=== PATIENT | female | born 1940 | race Caucasian/White ===

== ENCOUNTER 2019-09-17 10:46 | Observation (INO) | payer MEDICARE, BC ==
--- NOTE | 2019-09-17 11:15 | ED ---
General Adult HPI - General Chief complaint: Shortness of Breath Stated complaint: dizzy,cough, short of breath Time Seen by Provider: 09/17/19 11:11 Source: patient, RN notes reviewed, old records reviewed Mode of arrival: wheelchair Limitations: no limitations - History of Present Illness Initial comments: 79-year-old female presenting for evaluation of cough and dyspnea. Patient has COPD. She's had 2 days of increasing cough with sputum production. No fever. No central radiating chest pain. No lower extremity pain or swelling. Denies URI symptoms. No known contacts with coronal virus. Patient currently not on home oxygen. She was urged presented emergency department by her daughter. No abdominal pain nausea or vomiting. - Related Data Home Medications Medication Instructions Recorded Confirmed Atorvastatin [Lipitor] 20 mg PO DAILY 01/11/15 01/11/15 Carvedilol [Coreg] 6.25 mg PO BID 01/11/15 01/11/15 Furosemide [Lasix] 40 mg PO BID 01/11/15 01/11/15 Glimepiride [Amaryl] 2 mg PO AC-[id number] 01/11/15 01/11/15 Levothyroxine Sodium [Synthroid] 150 mcg PO DAILY 01/11/15 01/11/15 Lisinopril [Zestril] 10 mg PO DAILY 01/11/15 01/11/15 Tiotropium 18 Mcg/Puff [Spiriva] 1 cap INHALATION DAILY 01/11/15 01/11/15 Warfarin [Coumadin] 5 mg PO DIRECTED 01/11/15 01/11/15 Zafirlukast 20 mg PO BID 01/11/15 01/11/15 metFORMIN HCL 1,000 mg PO BID 01/11/15 01/11/15 Previous Rx's Medication Instructions Recorded HYDROcodone/APAP 5-325MG [Parks 1 each PO Q6HR PRN #20 tab 01/11/15 5-325] Allergies Allergy/AdvReac Type Severity Reaction Status Date / Time No Known Allergies Allergy Verified 09/17/19 10:53 Review of Systems ROS Statement: Those systems with pertinent positive or pertinent negative responses have been documented in the HPI. ROS Other: All systems not noted in ROS Statement are negative. Past Medical History Past Medical History: Heart Failure, COPD, Diabetes Mellitus, Hyperlipidemia, Hypertension, Thyroid Disorder History of Any Multi-Drug Resistant Organisms: None Reported Past Surgical History: Appendectomy, Cholecystectomy, Coronary Bypass/CABG, Joint Replacement, Orthopedic Surgery Past Psychological History: No Psychological Hx Reported Smoking Status: Never smoker Past Alcohol Use History: None Reported Past Drug Use History: None Reported General Exam Limitations: no limitations General appearance: alert, in no apparent distress Head exam: Present: atraumatic, normocephalic Eye exam: Present: normal appearance, PERRL ENT exam: Present: normal exam Neck exam: Present: normal inspection. Absent: tenderness, meningismus Respiratory exam: Present: respiratory distress, wheezes, decreased breath sounds. Absent: accessory muscle use Cardiovascular Exam: Present: regular rate, irregular rhythm GI/Abdominal exam: Present: soft. Absent: distended, tenderness, guarding, rebo und Extremities exam: Present: normal inspection, normal capillary refill. Absent: pedal edema, calf tenderness Back exam: Present: normal inspection, full ROM Neurological exam: Present: alert, oriented X3, CN II-XII intact. Absent: motor sensory deficit Psychiatric exam: Present: normal affect, normal mood Skin exam: Present: warm, dry, intact. Absent: cyanosis, diaphoretic Course Vital Signs 09/17/19 10:53 Temperature 97.9 F Pulse Rate 64 Respiratory 18 Rate Blood Pressure 137/73 O2 Sat by Pulse 96 Oximetry EKG Findings - EKG Comments: EKG Findings:: EKG: Atrial fibrillation, left axis, rate of 66, QRS duration 84, QTC 452, no ST segment elevation Medical Decision Making - Medical Decision Making 79-year-old female presenting with cough dyspnea. History of COPD. Exam rev ealing bilateral wheezing. Chest x-ray showing COPD, cardiomegaly, trace pleural effusions no lobar pneumonia. Patient has normal CBC, normal CMP, lactic acid of 3.0, normal BNP 850. After albuterol, Atrovent steroids, she has some improvement but remains dyspneic. She will be placed in observation for treatment of COPD exacerbation. Case is discussed with Dr. Schuster, will accept admission. Muniz virus test pending - Lab Data Result diagrams: 09/17/19 11:05 09/17/19 11:05 Lab Results 09/17/19 09/17/19 09/17/19 Range/Units 11:05 11:05 11:05 WBC 5.1 (3.8-10.6) k/uL RBC 4.72 (3.80-5.40) m/uL Hgb 12.5 (11.4-16.0) gm/dL Hct 40.5 (34.0-46.0) % MCV 85.7 (80.0-100.0) fL MCH 26.4 (25.0-35.0) pg MCHC 30.8 L (31.0-37.0) g/dL RDW 15.4 (11.5-15.5) % Plt Count 163 (150-450) k/uL Neutrophils % 64 % Lymphocytes % 16 % Monocytes % 8 % Eosinophils % 9 % Basophils % 1 % Neutrophils # 3.3 (1.3-7.7) k/uL Lymphocytes # 0.8 L (1.0-4.8) k/uL Monocytes # 0.4 (0-1.0) k/uL Eosinophils # 0.4 (0-0.7) k/uL Basophils # 0.0 (0-0.2) k/uL Hypochromasia Slight Sodium 139 (137-145) mmol/L Potassium 3.9 (3.5-5.1) mmol/L Chloride 102 (98-107) mmol/L Carbon Dioxide 25 (22-30) mmol/L Anion Gap 12 mmol/L BUN 17 (7-17) mg/dL Creatinine 0.77 (0.52-1.04) mg/dL Est GFR (CKD-EPI)AfAm 84 (>60 ml/min/1.73 sqM) Est GFR (CKD-EPI)NonAf 73 (>60 ml/min/1.73 sqM) Glucose 147 H (74-99) mg/dL Plasma Lactic Acid Jayson 3.0 H* (0.7-2.0) mmol/L Calcium 9.9 (8.4-10.2) mg/dL Magnesium 1.7 (1.6-2.3) mg/dL Total Bilirubin 0.9 (0.2-1.3) mg/dL AST 20 (14-36) U/L ALT 12 (4-34) U/L Alkaline Phosphatase 81 (38-126) U/L NT-Pro-B Natriuret Pep pg/mL Total Protein 7.0 (6.3-8.2) g/dL Albumin 4.4 (3.5-5.0) g/dL 09/17/19 Range/Units 11:05 WBC (3.8-10.6) k/uL RBC (3.80-5.40) m/uL Hgb (11.4-16.0) gm/dL Hct (34.0-46.0) % MCV (80.0-100.0) fL MCH (25.0-35.0) pg MCHC (31.0-37.0) g/dL RDW (11.5-15.5) % Plt Count (150-450) k/uL Neutrophils % % Lymphocytes % % Monocytes % % Eosinophils % % Basophils % % Neutrophils # (1.3-7.7) k/uL Lymphocytes # (1.0-4.8) k/uL Monocytes # (0-1.0) k/uL Eosinophils # (0-0.7) k/uL Basophils # (0-0.2) k/uL Hypochromasia Sodium (137-145) mmol/L Potassium (3.5-5.1) mmol/L Chloride (98-107) mmol/L Carbon Dioxide (22-30) mmol/L Anion Gap mmol/L BUN (7-17) mg/dL Creatinine (0.52-1.04) mg/dL Est GFR (CKD-EPI)AfAm (>60 ml/min/1.73 sqM) Est GFR (CKD-EPI)NonAf (>60 ml/min/1.73 sqM) Glucose (74-99) mg/dL Plasma Lactic Acid Jayson (0.7-2.0) mmol/L Calcium (8.4-10.2) mg/dL Magnesium (1.6-2.3) mg/dL Total Bilirubin (0.2-1.3) mg/dL AST (14-36) U/L ALT (4-34) U/L Alkaline Phosphatase (38-126) U/L NT-Pro-B Natriuret Pep 850 pg/mL Total Protein (6.3-8.2) g/dL Albumin (3.5-5.0) g/dL Disposition Clinical Impression: Acute exacerbation of chronic obstructive pulmonary disease Disposition: ADMITTED IP TO THIS HOSP Condition: Stable Is patient prescribed a controlled substance at d/c from ED?: No Referrals: Que Ling MD [Primary Care Provider] - 1-2 days Decision to Admit Reason: Admit from EC Decision Date: 09/17/19 Decision Time: 13:40
[2019-09-17] MEDS ORDERED: IPRATROPIUM 0.5 MG/2.5 ML NEBU INHALATION STA (11:32)
[2019-09-17] MEDS ORDERED: methylPREDNISolone SOD SUCCI 125 MG/2 ML VIAL IV STA (11:32)
[2019-09-17] MEDS ORDERED: ALBUTEROL NEBULIZED 2.5 MG/3 ML INHALATION STA (11:32)
[2019-09-17] MEDS ORDERED: ALBUTEROL HFA INHALER INHALATION STA (11:43)
[2019-09-17 11:46] LABS: Basophils % (A) 1 %; Eosinophils # (A) 0.4 k/uL (0-0.7); Eosinophils % (A) 9 %; HCT 40.5 % (34.0-46.0); HGB 12.5 gm/dL (11.4-16.0); Hypochromasia Slight; Lymphocytes # (A) 0.8 k/uL (1.0-4.8); Lymphocytes % (A) 16 %; MCH 26.4 pg (25.0-35.0); MCHC 30.8 g/dL (31.0-37.0); MCV 85.7 fL (80.0-100.0); Mean Platelet Volume 8.2; Monocytes # (A) 0.4 k/uL (0-1.0); Monocytes % (A) 8 %; Neutrophils # (A) 3.3 k/uL (1.3-7.7); Neutrophils % (A) 64 %; Platelet Count 163 k/uL (150-450); RBC 4.72 m/uL (3.80-5.40); RDW 15.4 % (11.5-15.5); WBC 5.1 k/uL (3.8-10.6)
[2019-09-17 11:58] LABS: Albumin 4.4 g/dL (3.5-5.0); Calcium 9.9 mg/dL (8.4-10.2); Magnesium 1.7 mg/dL (1.6-2.3); Potassium 3.9 mmol/L (3.5-5.1); Total Bilirubin 0.9 mg/dL (0.2-1.3)
--- NOTE | 2019-09-17 12:01 | XR ---
EXAMINATION TYPE: XR chest 2V DATE OF EXAM: 09/17/2019 HISTORY: difficulty breathing. REFERENCE: Previous study dated 01/11/2015. FINDINGS: There has been a midline sternotomy. The lungs are overinflated. The heart is enlarged. I do not see pneumonia or edema. There is blunting of both CP angles and I cannot exclude small effusions. IMPRESSION: 1. COPD. 2. CARDIOMEGALY.
[2019-09-17] MEDS ORDERED: SODIUM CHLORIDE 0.9% 500 ML 500 ML IV ONE (12:33)
[2019-09-17] MEDS ORDERED: ALBUTEROL HFA INHALER INHALATION PRN (13:36)
[2019-09-17] MEDS: ACETAMINOPHEN TAB 325 MG TAB PO PRN (15:32)
[2019-09-17] MEDS ORDERED: ALBUTEROL HFA INHALER INHALATION SCH (16:00)
[2019-09-17 17:04] LABS: Glucose,Whole Blood 225 mg/dL (75-99)
[2019-09-17] MEDS: FUROSEMIDE 40 MG TAB PO SCH (17:04)
[2019-09-17] MEDS: CARVEDILOL 6.25 MG TAB PO SCH (17:04)
[2019-09-17] MEDS: methylPREDNISolone SOD SUCCI 125 MG/2 ML VIAL IV SCH (17:04)
[2019-09-17] MEDS ORDERED: ALBUTEROL NEBULIZED 2.5 MG/3 ML INHALATION PRN (18:22)
[2019-09-17] MEDS ORDERED: NALOXONE 0.4 MG/ML 1 ML VIAL IV PRN (18:56)
[2019-09-17] MEDS ORDERED: HYDROcodone/APAP 5-325MG 1 EACH TAB PO PRN (18:56)
--- NOTE | 2019-09-17 18:56 | P.HPIM ---
History of Present Illness H&P Date: 09/17/19 Chief Complaint: COPD exacerbation 79-year-old female with PMH of COPD, hypertension, diabetes mellitus, hypothyroidism, CAD, atrial fibrillation presents the ED for shortness of breath. Patient states that she attended an outdoor picnic for her grandson's birthday on Wednesday. Upon coming home, patient noticed increased frequency of cough that she describes as wet, unable to produce sputum and shortness of breath. Patient states that she has been getting coughing fits that leads to dizziness. Patient also reports lightheadedness especially when she stands up. She denies any headaches, lower extremity edema, nausea or vomiting, fever or chills, chest pain, palpitations, changes in urination or bowel habits. No changes in appetite or weight. She denies any numbness/weakness/tingling of the extremities. When her symptoms did not improve, this prompted her to come to the ED. In the ED, her vital signs were stable on 2 L nasal cannula. CBC was relatively unremarkable. CMP showed glucose of 147. Lactic acid was 3. BNP was 850. Coronavirus testing was negative. Patient is admitted for COPD exacerbation with pulmonology on consult. Review of Systems Pertinent positives and negatives as discussed in HPI, a complete review of systems was performed and all other systems are negative. Past Medical History Past Medical History: Heart Failure, COPD, Diabetes Mellitus, Hyperlipidemia, Hypertension, Thyroid Disorder History of Any Multi-Drug Resistant Organisms: None Reported Past Surgical History: Appendectomy, Cholecystectomy, Coronary Bypass/CABG, Hysterectomy, Joint Replacement, Orthopedic Surgery Past Psychological History: No Psychological Hx Reported Smoking Status: Never smoker Past Alcohol Use History: None Reported Past Drug Use History: None Reported - Past Family History Mother Family Medical History: Myocardial Infarction ([place]) Medications and Allergies Home Medications Medication Instructions Recorded Confirmed Type Carvedilol [Coreg] 6.25 mg PO BID 01/11/15 09/17/19 History Furosemide [Lasix] 40 mg PO BID 01/11/15 09/17/19 History Zafirlukast 20 mg PO BID 01/11/15 09/17/19 History metFORMIN HCL 1,000 mg PO BID 01/11/15 09/17/19 History Albuterol Nebulized [Ventolin 2.5 mg INHALATION RT-Q8H PRN 09/17/19 09/17/19 History Nebulized] Apixaban [Eliquis] 2.5 mg PO BID 09/17/19 09/17/19 History Isosorbide Mononitrate ER [Imdur] 30 mg PO DAILY 09/17/19 09/17/19 History Levothyroxine Sodium [Synthroid] 137 mcg PO DAILY 09/17/19 09/17/19 History Lisinopril 20 mg PO BID 09/17/19 09/17/19 History amLODIPine [Norvasc] 5 mg PO DAILY 09/17/19 09/17/19 History glipiZIDE XL [Glucotrol Xl] 2.5 mg PO DAILY 09/17/19 09/17/19 History Allergies Allergy/AdvReac Type Severity Reaction Status Date / Time No Known Allergies Allergy Verified 09/17/19 10:53 Physical Exam Vitals: Vital Signs Temp Pulse Pulse Resp BP BP Pulse Ox 09/17/19 14:45 97.8 F 60 18 168/78 98 09/17/19 14:15 57 L 16 139/53 99 09/17/19 13:56 61 17 155/79 97 09/17/19 10:53 97.9 F 64 18 137/73 96 Intake and Output 09/17/19 09/17/19 09/17/19 06:59 14:59 22:59 Intake Total 296 Balance 296 Intake: Oral 296 Other: Weight 77.111 kg General: [non toxic], [no distress], [appears at stated age] Derm: [warm], [dry] Head: [atraumatic], [normocephalic], [symmetric] Eyes: [EOMI], [no lid lag], [anicteric sclera] Mouth: [no lip lesion], [mucus membranes moist] Cardiovascular: [S1S2 reg], [tachycardia], [positive DP pulse bilateral], Lungs: [Diffuse wheezing bilateral], [no rhonchi, no rales] , [no accessory muscle use] Abdominal: [soft], [ nontender to palpation], [no guarding], [no appreciable organomegaly] Ext: [no gross muscle atrophy], [no edema], [no contractures] Neuro: [ CN II-XI grossly intact], [no focal neuro deficits] Psych: [Alert], [oriented], [appropriate affect] Results CBC & Chem 7: 09/17/19 11:05 09/17/19 11:05 Labs: Abnormal Lab Results - Last 24 Hours (Table) 09/17/19 09/17/19 09/17/19 Range/Units 11:05 11:05 11:05 MCHC 30.8 L (31.0-37.0) g/dL Lymphocytes # 0.8 L (1.0-4.8) k/uL Glucose 147 H (74-99) mg/dL POC Glucose (mg/dL) (75-99) mg/dL Plasma Lactic Acid Jayson 3.0 H* (0.7-2.0) mmol/L 09/17/19 Range/Units 17:02 MCHC (31.0-37.0) g/dL Lymphocytes # (1.0-4.8) k/uL Glucose (74-99) mg/dL POC Glucose (mg/dL) 225 H (75-99) mg/dL Plasma Lactic Acid Jayson (0.7-2.0) mmol/L Thrombosis Risk Factor Assmnt - Choose All That Apply Any of the Below Risk Factors Present?: Yes Each Factor Represents 1 point: Abnormal pulmonary function (COPD), Obesity (BMI >25) Other Risk Factors: Yes Each Risk Factor Represents 3 Points: Age 75 years or older Other congenital or acquired thrombophilia - If yes, enter type in comment: No Thrombosis Risk Factor Assessment Total Risk Factor Score: 5 Thrombosis Risk Factor Assessment Level: High Risk Assessment and Plan Assessment: Acute COPD exacerbation Lactic acidosis Atrial fibrillation on anticoagulation Hypertension Diabetes mellitus with hyperglycemia Obesity Chest x-ray negative. BNP 850. Coronavirus testing negative. Plans: Albuterol nebs scheduled and as needed for shortness of breath and wheezing. Continue Solu-Medrol. 3 days of azithromycin. Continue tiotropium. Continue Singulair. O2 per NC to maintain O2 saturation greater than 92%. Telemetry monitoring. Lactic acid 3. Likely from dehydration. Plans: Normal sinus 75 mL per hour. Repeat until negative. Currently rate controlled. Plans: Continue Eliquis. Continue Coreg. BP 139/53. Plans: Continue amlodipine, Coreg, Lasix, Imdur and lisinopril. Monitor vitals, adjust medications as necessary. [id number] glucose 225. Plans: Insulin sliding scale. Regular Accu-Cheks. Hypoglycemic precautions. BMI 29.2. Plans: Would benefit from structured weight loss program. DVT prophylaxis: [[place]] Discussed with: [Patient] Anticipated discharge: [1-2 days] Anticipated discharge place: [Home] A total of [35] minutes was spent on the care of this complex patient more than 50% of the time was spent in counseling and care coordination. Patient names her daughter Donya decision maker if she can't make decisions for herself. Patient would like to be DO NOT RESUSCITATE but is agreeable for intubation if need be.
[2019-09-17] MEDS ORDERED: AZITHROMYCIN 500 MG TAB PO SCH (19:00)
[2019-09-17] MEDS: ALBUTEROL NEBULIZED 2.5 MG/3 ML INHALATION SCH ×2 (19:49→23:36)
[2019-09-17 20:26] LABS: Glucose,Whole Blood 273 mg/dL (75-99)
[2019-09-17] MEDS ORDERED: MONTELUKAST 10 MG TAB PO SCH (21:00)
[2019-09-17] MEDS: APIXABAN 2.5 MG TABLET PO SCH (21:41)
[2019-09-17] MEDS: LISINOPRIL 20 MG TAB PO SCH (21:41)
[2019-09-17] MEDS: INSULIN ASPART (NovoLOG) 100 UNIT/ML VIAL SQ SCH (21:42)
[2019-09-17] MEDS: guaiFENesin 600 MG TABLET.ER PO SCH (21:44)
[2019-09-17] MEDS: SODIUM CHLORIDE 0.9% 1,000 ML IV SCH (22:59)
[2019-09-18] MEDS: methylPREDNISolone SOD SUCCI 125 MG/2 ML VIAL IV SCH ×3 (01:29→12:13)
[2019-09-18 03:24] LABS: Glucose,Whole Blood 186 mg/dL (75-99)
[2019-09-18] MEDS: ALBUTEROL NEBULIZED 2.5 MG/3 ML INHALATION SCH ×3 (03:40→11:43)
[2019-09-18] MEDS: ACETAMINOPHEN TAB 325 MG TAB PO PRN (06:01)
[2019-09-18] MEDS ORDERED: LEVOTHYROXINE 137 MCG TAB PO SCH (06:30)
[2019-09-18 06:38] LABS: Glucose,Whole Blood 208 mg/dL (75-99)
[2019-09-18 07:26] VITALS: BP 146/68; RESP 15; TEMP 98
[2019-09-18] MEDS: TIOTROPIUM 18 MCG/PUFF INHALER INHALATION SCH ×2 (07:55→11:43)
[2019-09-18] MEDS: guaiFENesin 600 MG TABLET.ER PO SCH (08:05)
[2019-09-18] MEDS: LISINOPRIL 20 MG TAB PO SCH (08:05)
[2019-09-18] MEDS: APIXABAN 2.5 MG TABLET PO SCH (08:05)
[2019-09-18] MEDS: FUROSEMIDE 40 MG TAB PO SCH (08:05)
[2019-09-18] MEDS: CARVEDILOL 6.25 MG TAB PO SCH (08:06)
[2019-09-18] MEDS: INSULIN ASPART (NovoLOG) 100 UNIT/ML VIAL SQ SCH ×2 (08:10→12:14)
[2019-09-18] MEDS ORDERED: amLODIPine 5 MG TAB PO SCH (09:00)
[2019-09-18] MEDS ORDERED: ISOSORBIDE MONONITRATE ER 30 MG TAB.ER.24H PO SCH (09:00)
[2019-09-18 11:07] LABS: Glucose,Whole Blood 254 mg/dL (75-99)
[2019-09-18 11:54] VITALS: PULSE 72
[2019-09-18] MEDS: SODIUM CHLORIDE 0.9% 1,000 ML IV SCH (12:14)
--- NOTE | 2019-09-18 12:32 | P.CNPUL ---
History of Present Illness Consult date: 09/18/19 Requesting physician: Dano Schuster Reason for consult: dyspnea, cough Chief complaint: Cough and dyspnea History of present illness: 79-year-old white female patient of Dr. Ling, nonsmoker, with history of COPD, not on home oxygen, diabetes mellitus type 2, hypertension, hyperlipidemia, hypothyroidism, coronary artery disease with previous history of bypass grafting, atrial fibrillation on Eliquis, history of chronic congestive heart failure with unknown systolic function who presented to the emergency department on 09/17/2019 with complaints of 2 days worth of increasing shortness of breath, cough and sputum production. Apparently patient attended an outdoor picnic for her grandson's birthday on Wednesday after which she developed increased frequency of cough. Denied any fever or chills, denied any chest pain or hemoptysis, denied any contact with COVID 19. No nausea vomiting or diarrhea, no abdominal pain, no lightheadedness or dizziness. Patient states she is a lifetime nonsmoker. Chest x-ray showed COPD, midline sternotomy, and blunting of both CP angles consistent with small pleural effusions. EKG showed A. fib with a controlled rate. Coronavirus testing was negative, CBC showed white blood cell count of 5.1, hemoglobin of 12.5, lymphopenia with the lymphocy te count of 0.8, electrolytes and renal profile were unremarkable, plasma lactic acid was normal at 1.9, LFTs were within normal limits, proBNP was 850. Patient was treated with IV steroids, Mucinex, Singulair, nebulized bronchodilators, azithromycin, Spiriva. She is on home dose Lasix of 40 mg twice daily. She looks calm and comfortable during our evaluation, room air pulse ox is 93%, she's been afebrile. Breathing easier, lung sounds are clear. Responded well to inpatient treatment. Patient can be considered for discharge home today with outpatient follow-up in the pulmonary clinic Review of Systems All systems: negative Constitutional: Denies chills, Denies fever Eyes: denies blurred vision, denies pain Ears, nose, mouth and throat: Denies headache, Denies sore throat Cardiovascular: Denies chest pain, Denies shortness of breath Respiratory: Reports cough, Reports dyspnea Gastrointestinal: Denies abdominal pain, Denies diarrhea, Denies nausea, Denies vomiting Genitourinary: Denies dysuria, Denies hematuria Musculoskeletal: Denies myalgias Integumentary: Denies pruritus, Denies rash Neurological: Denies numbness, Denies weakness Psychiatric: Denies anxiety, Denies depression Endocrine: Denies fatigue, Denies weight change Past Medical History Past Medical History: Heart Failure, COPD, Diabetes Mellitus, Hyperlipidemia, Hypertension, Thyroid Disorder History of Any Multi-Drug Resistant Organisms: None Reported Past Surgical History: Appendectomy, Cholecystectomy, Coronary Bypass/CABG, Hysterectomy, Joint Replacement, Orthopedic Surgery Past Psychological History: No Psychological Hx Reported Smoking Status: Never smoker Past Alcohol Use History: None Reported Past Drug Use History: None Reported - Past Family History Mother Family Medical History: Myocardial Infarction ([place]) Medications and Allergies Home Medications Medication Instructions Recorded Confirmed Type Carvedilol [Coreg] 6.25 mg PO BID 01/11/15 09/17/19 History Furosemide [Lasix] 40 mg PO BID 01/11/15 09/17/19 History Zafirlukast 20 mg PO BID 01/11/15 09/17/19 History metFORMIN HCL 1,000 mg PO BID 01/11/15 09/17/19 History Albuterol Nebulized [Ventolin 2.5 mg INHALATION RT-Q8H PRN 09/17/19 09/17/19 History Nebulized] Apixaban [Eliquis] 2.5 mg PO BID 09/17/19 09/17/19 History Isosorbide Mononitrate ER [Imdur] 30 mg PO DAILY 09/17/19 09/17/19 History Levothyroxine Sodium [Synthroid] 137 mcg PO DAILY 09/17/19 09/17/19 History Lisinopril 20 mg PO BID 09/17/19 09/17/19 History amLODIPine [Norvasc] 5 mg PO DAILY 09/17/19 09/17/19 History glipiZIDE XL [Glucotrol XL] 2.5 mg PO DAILY 09/17/19 09/17/19 History Azithromycin [Zithromax] 500 mg PO DAILY@1900 #2 tab 09/18/19 Rx Tiotropium 18 Mcg/Puff [Spiriva] 1 puff INHALATION RT-DAILY #1 09/18/19 Rx inhaler guaiFENesin [Mucinex] 1,200 mg PO Q12HR tablet.er 09/18/19 Rx predniSONE [Deltasone] 40 mg PO DAILY #8 tab 09/18/19 Rx Allergies Allergy/AdvReac Type Severity Reaction Status Date / Time No Known Allergies Allergy Verified 09/17/19 10:53 Physical Exam Vitals: Vital Signs Temp Pulse Pulse Resp BP BP Pulse Ox 09/18/19 11:53 72 09/18/19 11:43 72 09/18/19 08:21 93 L 09/18/19 08:05 68 09/18/19 07:55 68 09/18/19 07:00 98.0 F 70 15 146/68 95 09/18/19 04:04 98.5 F 76 17 171/79 97 09/18/19 03:54 68 09/18/19 03:40 68 09/17/19 23:44 66 16 09/17/19 23:36 68 16 09/17/19 19:59 64 09/17/19 19:57 97.8 F 60 18 143/75 96 09/17/19 19:49 60 09/17/19 14:45 97.8 F 60 18 168/78 98 09/17/19 14:15 57 L 16 139/53 99 09/17/19 13:56 61 17 155/79 97 Intake and Output 09/17/19 09/18/19 09/18/19 22:59 06:59 14:59 Intake Total 296 240 Output Total 300 300 Balance -4 -300 240 Intake: Oral 296 240 Output: Urine 300 300 Other: # Voids 1 1 GENERAL EXAM: Alert, very pleasant, 79-year-old white female on room air, with a pulse ox of 93% comfortable in no apparent distress. HEAD: Normocephalic/atraumatic. EYES: Normal reaction of pupils, equal size. Conjunctiva pink, sclera white. NOSE: Clear with pink turbinates. THROAT: No erythema or exudates. NECK: No masses, no JVD, no thyroid enlargement, no adenopathy. CHEST: No chest wall deformity. Symmetrical expansion. LUNGS: Equal air entry with no crackles, wheeze, rhonchi or dullness. CVS: Irregular rate and rhythm, normal S1 and S2, no gallops, no murmurs, no rubs ABDOMEN: Soft, nontender. No hepatosplenomegaly, normal bowel sounds, no guarding or rigidity. EXTREMITIES: No clubbing, no edema, no cyanosis, 2+ pulses and upper and lower extremities. MUSCULOSKELETAL: Muscle strength and tone normal. SPINE: No scoliosis or deformity SKIN: No rashes CENTRAL NERVOUS SYSTEM: Alert and oriented -3. No focal deficits, tone is normal in all 4 extremities. PSYCHIATRIC: Alert and oriented -3. Appropriate affect. Intact judgment and insight. Results - Laboratory Findings CBC and BMP: 09/17/19 11:05 09/17/19 11:05 Abnormal lab findings: Abnormal Labs 09/17/19 09/17/19 09/17/19 11:05 11:05 11:05 MCHC 30.8 L Lymphocytes # 0.8 L Glucose 147 H POC Glucose (mg/dL) Plasma Lactic Acid Jayson 3.0 H* 09/17/19 09/17/19 09/18/19 17:02 20:24 03:04 MCHC Lymphocytes # Glucose POC Glucose (mg/dL) 225 H 273 H 186 H Plasma Lactic Acid Jayson 09/18/19 09/18/19 06:36 11:06 MCHC Lymphocytes # Glucose POC Glucose (mg/dL) 208 H 254 H Plasma Lactic Acid Jayson - Diagnostic Findings Chest x-ray: report reviewed, image reviewed Additional studies: EKG reviewed Assessment and Plan Plan: Assessment: #1. Acute exacerbation of COPD, COVID 19 ruled out #2. Small bilateral pleural effusions #3. Rule out possibility of chronic bronchial asthma, related to outdoor ALLERGIES, will need outpatient ALLERGY testing, and outpatient PFT #4. Chronic atrial fibrillation on Eliquis #5. Retention #6. Diabetes mellitus type 2 #7. Obesity #8. Lifetime nonsmoker #9. Chronic congestive heart failure with unknown systolic function #10. Hyperlipidemia Plan: Patient is doing well, is back on her home dose of oral Lasix, she's been treated with IV steroids and nebulized treatments and empiric antibiotics, responded well to treatments, breathing easier, vital signs are stable, no acute events overnight, pulmonary perspective she can be considered for discharge home today with outpatient follow-up for outpatient ALLERGY testing and outpatient PFT, follow-up with Dr. Bansal/Dr. Lowry in the office in 7-10 days I performed a history & physical examination of the patient and discussed their management with my nurse practitioner, Xuan Engel. I reviewed the nurse practitioner's note and agree with the documented findings and plan of care. Lung sounds are positive for diminished breath sounds. The findings and the impression was discussed with the patient. I attest to the documentation by the nurse practitioner. Time with Patient: Greater than 30
--- NOTE | 2019-09-18 17:11 | P.DS ---
Providers Date of admission: 09/17/19 13:36 Expected date of discharge: 09/18/19 Attending physician: Dano Schuster MD Consults: 09/17/19 18:46 Consult Physician Routine Consulting Provider: Kee Sheehan Consult Reason/Comments: COPD Do you want consulting provider notified?: Yes Primary care physician: [facility] Course: 79-year-old female with PMH of COPD, hypertension, diabetes mellitus, hypothyroidism, CAD, atrial fibrillation presents the ED for shortness of breath. Patient states that she attended an outdoor picnic for her grandson's birthday on Wednesday. Upon coming home, patient noticed increased frequency of cough that she describes as wet, unable to produce sputum and shortness of breath. Patient states that she has been getting coughing fits that leads to dizziness. Patient also reports lightheadedness especially when she stands up. She denies any headaches, lower extremity edema, nausea or vomiting, fever or chills, chest pain, palpitations, changes in urination or bowel habits. No changes in appetite or weight. She denies any numbness/weakness/tingling of the extremities. When her symptoms did not improve, this prompted her to come to the ED. In the ED, her vital signs were stable on 2 L nasal cannula. CBC was relatively unremarkable. CMP showed glucose of 147. Lactic acid was 3. BNP was 850. Coronavirus testing was negative. Patient is admitted for COPD exacerbation with pulmonology on consult. Patient was seen and examined. No acute events overnight. Patient reports considerable improvement in her breathing since admission. She denies any chest pain or palpitations. Almost back to baseline. No nausea or vomiting. No fever or chills. Has nebulizer machine at home. General: [non toxic], [no distress], [appears at stated age] Derm: [warm], [dry] Head: [atraumatic], [normocephalic], [symmetric] Eyes: [EOMI], [no lid lag], [anicteric sclera] Mouth: [no lip lesion], [mucus membranes moist] Cardiovascular: [S1S2 reg], [no murmur], [positive DP pulse bilateral], Lungs: [Decreased breath sounds bilateral], [no rhonchi, no rales] , [no accessory muscle use] Abdominal: [soft], [ nontender to palpation], [no guarding], [no appreciable organomegaly] Ext: [no gross muscle atrophy], [no edema], [no contractures] Neuro: [ [no focal neuro deficits] Psych: [Alert], [oriented], [appropriate affect] Acute COPD exacerbation Lactic acidosis Atrial fibrillation on anticoagulation Hypertension Diabetes mellitus with hyperglycemia Obesity Chest x-ray negative. BNP 850. Coronavirus testing negative. Plans: Albuterol nebs scheduled and as needed for shortness of breath and wheezing. 5 days of prednisone on discharge. 3 days of azithromycin. Continue tiotropium. Continue Singulair. O2 per NC to maintain O2 saturation greater than 92%. Telemetry monitoring. Lactic acid 3. Likely from dehydration. Plans: Normal sinus 75 mL per hour. Repeat negative. Currently rate controlled. Plans: Continue Eliquis. Continue Coreg. BP 146/68. Plans: Continue amlodipine, Coreg, Lasix, Imdur and lisinopril. Monitor vitals, adjust medications as necessary. [id number] glucose 254. Plans: Insulin sliding scale. Regular Accu-Cheks. Hypoglycemic precautions. BMI 29.2. Plans: Would benefit from structured weight loss program. [Patient cleared by pulmonology for discharge.] Pertinent Studies: Chest x-ray Patient Condition at Discharge: Stable Plan - Discharge Summary Discharge Rx Participant: No New Discharge Prescriptions: New predniSONE [Deltasone] 40 mg PO DAILY #8 tab guaiFENesin [Mucinex] 1,200 mg PO Q12HR tablet.er Tiotropium 18 Mcg/Puff [Spiriva] 1 puff INHALATION RT-DAILY #1 inhaler Azithromycin [Zithromax] 500 mg PO DAILY@1900 #2 tab Continue Furosemide [Lasix] 40 mg PO BID Carvedilol [Coreg] 6.25 mg PO BID metFORMIN HCL 1,000 mg PO BID Zafirlukast 20 mg PO BID Albuterol Nebulized [Ventolin Nebulized] 2.5 mg INHALATION RT-Q8H PRN PRN Reason: Shortness Of Breath Lisinopril 20 mg PO BID Levothyroxine Sodium [Synthroid] 137 mcg PO DAILY Isosorbide Mononitrate ER [Imdur] 30 mg PO DAILY glipiZIDE XL [Glucotrol XL] 2.5 mg PO DAILY amLODIPine [Norvasc] 5 mg PO DAILY Apixaban [Eliquis] 2.5 mg PO BID Discharge Medication List Carvedilol [Coreg] 6.25 mg PO BID 01/11/15 [History] Furosemide [Lasix] 40 mg PO BID 01/11/15 [History] Zafirlukast 20 mg PO BID 01/11/15 [History] metFORMIN HCL 1,000 mg PO BID 01/11/15 [History] Albuterol Nebulized [Ventolin Nebulized] 2.5 mg INHALATION RT-Q8H PRN 09/17/19 [History] Apixaban [Eliquis] 2.5 mg PO BID 09/17/19 [History] Isosorbide Mononitrate ER [Imdur] 30 mg PO DAILY 09/17/19 [History] Levothyroxine Sodium [Synthroid] 137 mcg PO DAILY 09/17/19 [History] Lisinopril 20 mg PO BID 09/17/19 [History] amLODIPine [Norvasc] 5 mg PO DAILY 09/17/19 [History] glipiZIDE XL [Glucotrol XL] 2.5 mg PO DAILY 09/17/19 [History] Azithromycin [Zithromax] 500 mg PO DAILY@1900 #2 tab 09/18/19 [Rx] Tiotropium 18 Mcg/Puff [Spiriva] 1 puff INHALATION RT-DAILY #1 inhaler 09/18/19 [Rx] guaiFENesin [Mucinex] 1,200 mg PO Q12HR tablet.er 09/18/19 [Rx] predniSONE [Deltasone] 40 mg PO DAILY #8 tab 09/18/19 [Rx] Follow up Appointment(s)/Referral(s): Que Ling MD [Primary Care Provider] - 1-2 days (office closed at time of discharge. Please call to make appointment) Kasia Bansal NPC [Nurse Practitioner] - 10 Days (office closed at time of discharge. Please call to make appointment) Patient Instructions/Handouts: COPD (Chronic Obstructive Pulmonary Disease) (DC) Activity/Diet/Wound Care/Special Instructions: Diet: Low-salt Follow-up with PCP within 3 days of discharge. Follow-up with pulmonology within 1 week of discharge. Take all Medications as advised. Come back to the ED for worsening shortness of breath, chest pain, palpitations or dizziness. Discharge Disposition: HOME SELF-CARE
== END 2019-09-18 12:51 | disposition home or self-care (01) ==
LOC: EC 10:46 → 4SSUR 13:36
PROVIDERS: ADMIT Family Medicine; ATTEND Family Medicine
DX: J44.1 Chronic obstructive pulmonary disease with (acute) exacerbation (principal); E03.9 Hypothyroidism, unspecified; E11.65 Type 2 diabetes mellitus with hyperglycemia; E66.9 Obesity, unspecified; Z68.29 Body mass index [BMI] 29.0-29.9, adult; E78.5 Hyperlipidemia, unspecified; E86.0 Dehydration; E87.2 Acidosis; I11.0 Hypertensive heart disease with heart failure; I25.10 Atherosclerotic heart disease of native coronary artery without angina pectoris; Z03.818 Encounter for observation for suspected exposure to other biological agents ruled out; I48.20 Chronic atrial fibrillation, unspecified; I50.9 Heart failure, unspecified; Z79.01 Long term (current) use of anticoagulants; Z79.84 Long term (current) use of oral hypoglycemic drugs; Z79.890 Hormone replacement therapy; Z79.899 Other long term (current) drug therapy; Z82.49 Family history of ischemic heart disease and other diseases of the circulatory system; Z90.710 Acquired absence of both cervix and uterus; Z95.1 Presence of aortocoronary bypass graft; Z96.60 Presence of unspecified orthopedic joint implant; Z90.49 Acquired absence of other specified parts of digestive tract
CPT/HCPCS: 96376 ×2; 96374; 99285; 36415; 94640 ×4; 93005; 83880; 80053; 83605; 83735; 85025; 87040; 87635; 71046; G0378 ×2; J2930 ×2

== ENCOUNTER 2024-04-24 00:38 | Inpatient (IN) | payer BC, MEDICARE ==
--- NOTE | 2024-04-24 01:09 | ED ---
SOB HPI - General Chief Complaint: Shortness of Breath Stated Complaint: SOB Time Seen by Provider: 04/24/24 00:56 Source: patient, RN notes reviewed Mode of arrival: EMS Limitations: no limitations - History of Present Illness Initial Comments: This is an 83-year-old female with a history of atrial fibrillation on Eliquis, congestive heart failure, and COPD presenting to the emergency department via EMS for chief complaint of shortness of breath. Majority of history is provided by patient's daughter at bedside due to patient's dementia. Patient's daughter states that the patient has been experiencing a worsening productive cough over the past 3 to 4 days and she attempted to administer breathing treatments with minimal improvement in breathing quality. Daughter was concerned of patient's shortness of breath and is on a pulse oximetry as her oxygen saturation was in the low 80s. Mother states that patient has been taking all prescribed me dications as directed. Daughter states that patient does not wear oxygen at baseline. - Related Data Home Medications Medication Instructions Recorded Confirmed Albuterol Inhaler [Ventolin Hfa 1 - 2 puff INHALATION RT-Q6H PRN 04/24/24 04/24/24 Inhaler] Apixaban [Eliquis] 2.5 mg PO BID 04/24/24 04/24/24 Atorvastatin Calcium [Lipitor] 40 mg PO DAILY 04/24/24 04/24/24 Ferrous Sulfate [Feosol] 325 mg PO DAILY 04/24/24 04/24/24 Furosemide [Lasix] 40 mg PO DAILY 04/24/24 04/24/24 Isosorbide Mononitrate ER [Imdur] 60 mg PO DAILY 04/24/24 04/24/24 Levothyroxine Sodium [Synthroid] 137 mcg PO DAILY 04/24/24 04/24/24 Montelukast [Singulair] 10 mg PO DAILY 04/24/24 04/24/24 Sertraline [Zoloft] 25 mg PO DAILY 04/24/24 04/24/24 amLODIPine [Norvasc] 5 mg PO DAILY 04/24/24 04/24/24 carvediloL [Coreg] 6.25 mg PO BID 04/24/24 04/24/24 glipiZIDE XL [Glucotrol XL] 2.5 mg PO DAILY 04/24/24 04/24/24 lisinopriL [Zestril] 20 mg PO DAILY 04/24/24 04/24/24 metFORMIN HCL 1,000 mg PO BID 04/24/24 04/24/24 Allergies Allergy/AdvReac Type Severity Reaction Status Date / Time azithromycin [From Zithromax] AdvReac Rapid Verified 04/24/24 05:46 Heart Rate Review of Systems ROS Statement: Those systems with pertinent positive or pertinent negative responses have been documented in the HPI. ROS Other: All systems not noted in ROS Statement are negative. Past Medical History Past Medical History: Heart Failure, COPD, Diabetes Mellitus, Hyperlipidemia, Hypertension, Thyroid Disorder History of Any Multi-Drug Resistant Organisms: None Reported Past Surgical History: Appendectomy, Cholecystectomy, Coronary Bypass/CABG, Hysterectomy, Joint Replacement, Orthopedic Surgery Past Psychological History: No Psychological Hx Reported Past Alcohol Use History: None Reported Past Drug Use History: None Reported - Past Family History Mother Family Medical History: Myocardial Infarction (OR) General Exam Limitations: no limitations Eye exam: Present: normal appearance, PERRL, EOMI. Absent: scleral icterus, conjunctival injection, periorbital swelling Neck exam: Present: normal inspection. Absent: tenderness, meningismus, l ymphadenopathy Respiratory exam: Present: wheezes, rales, rhonchi. Absent: normal lung sounds bilaterally Cardiovascular Exam: Present: regular rate, irregular rhythm, normal heart sounds. Absent: systolic murmur, diastolic murmur, rubs, gallop, clicks GI/Abdominal exam: Present: soft, normal bowel sounds. Absent: distended, tenderness, guarding, rebound, rigid Extremities exam: Present: normal inspection, full ROM, normal capillary refill. Absent: tenderness, pedal edema, joint swelling, calf tenderness Skin exam: Present: warm, dry, intact, normal color. Absent: rash Course Vital Signs 04/24/24 04/24/24 04/24/24 00:41 03:16 05:00 Temperature 99.2 F Pulse Rate 62 68 73 Respiratory 25 H 20 18 Rate Blood Pressure 159/81 167/80 165/88 O2 Sat by Pulse 94 L 91 L 93 L Oximetry 04/24/24 04/24/24 04/24/24 06:44 07:38 07:47 Temperature 99.2 F Pulse Rate 68 Respiratory 18 Rate Blood Pressure O2 Sat by Pulse 94 L Oximetry 12/02/24 07:50 Temperature Pulse Rate 81 Respiratory 20 Rate Blood Pressure O2 Sat by Pulse Oximetry Medical Decision Making - Medical Decision Making Was pt. sent in by a medical professional or institution (MOUNA Adhikari, SILK SCREEN OPERATOR, urgent care, hospital, or longterm...) When possible be specific @ -No Did you speak to anyone other than the patient for history (EMS, parent, family, police, friend...)? What history was obtained from this source @ -Spoke to the patient's family members at bedside who provided majority of history Did you review nursing and triage notes (agree or disagree)? Why? @ -I reviewed and agree with nursing and triage notes Were old charts reviewed (outside hosp., previous admission, EMS record, old EKG, old radiological studies, urgent care reports/EKG's, longterm records)? Report findings @ -No old charts were reviewed Differential Diagnosis (chest pain, altered mental status, abdominal pain women, abdominal pain men, vaginal bleeding, weakness, fever, dyspnea, syncope, headache, dizziness, GI bleed, back pain, seizure, CVA, palpatations, mental health, musculoskeletal)? @ -Differential Dyspnea: Coronary syndrome, arrhythmia, tamponade, asthma, COPD, pulmonary embolism, pneumonia, pneumothorax, pulmonary effusion, anaphylaxis, diabetic ketoacidosis, flailed chest, pulmonary contusion, diaphragmatic rupture, anemia, neuromuscular, this is not meant to be an all-inclusive list. EKG interpreted by me (3pts min.). @ -completed at 0048 atrial fibrillation with a ventricular rate of 66, QRS 90, QTc 400. X-rays interpreted by me (1pt min.). @ -chest x-ray is concerning for dependent airspace consolidations consistent with multilobar pneumonia CT interpreted by me (1pt min.). @ -None done U/S interpreted by me (1pt. min.). @ -None done What testing was considered but not performed or refused? (CT, X-rays, U/S, labs)? Why? @ -None What meds were considered but not given or refused? Why? @ -None Did you discuss the management of the patient with other professionals (professionals i.e. MOUNA Adhikari, SILK SCREEN OPERATOR, lab, RT, psych nurse, bilingual social worker, exhaust worker, teacher, senior commercial loan officer, correctional case manager)? Give summary @ -EM in regard to admission, patient is accepted. Was smoking cessation discussed for >3mins.? @ -No Was critical care preformed (if so, how long)? @ -No Were there social determinants of health that impacted care today? How? (Homelessness, low income, unemployed, alcoholism, drug addiction, transportation, low edu. Level, literacy, decrease access to med. care, half-way, rehab)? @ -No Was there de-escalation of care discussed even if they declined (Discuss DNR or withdrawal of care, Hospice)? DNR status @ -No What co-morbidities impacted this encounter? (DM, HTN, Smoking, COPD, CAD, Cancer, CVA, ARF, Chemo, Hep., AIDS, mental health diagnosis, sleep apnea, morbid obesity)? @ -Afib, COPD, CHF Was patient admitted / discharged? Hospital course, mention meds given and route, prescriptions, significant lab abnormalities, going to OR and other pertinent info. @ -Admitted. 83-year-old female with dyspnea. Patient presents via EMS with a in place with a oxygen saturation in the low 90s. Nursing staff originally evaluated the patient where she was placed on 4 L nasal cannula saturating in the mid 90s. My evaluation the patient I removed the oxygen and after a few minutes patient's oxygen saturations were in the mid 80s therefore 4 L readministered to the patient. Pulmonary examination remarkable for bilateral rales and rhonchi heart. Patient has a gurgling wet cough on exam. Mild edema of bilateral lower extremities. Patient's laboratory results remarkable for hyponatremia of 133, elevated BNP. Patient's VBG remarkable for compensated acidosis with a pCO2 of 52 and HCO3 of 30. On patient's presentation and laboratory studies concern for COPD exacerbation in addition to community- acquired pneumonia and congestive heart failure exacerbation. Patient will be started on IV Lasix and continued on home eliquis dose for anticoagulation from afib. Patient meets IDSA severe pneumonia criteria due to an increased respiratory rate, multilobar infiltrates on x-ray and elevated BUN. blood cultures are obtained prior to initiating antibiotics including Rocephin and Levaquin. Patient will be admitted to internal medicine with cardiology and pulmonology on consult for further evaluation. Additionally, she will have scheduled breathing treatments and steroids. Discussed with Dr. Romano Undiagnosed new problem with uncertain prognosis? @ -No Drug Therapy requiring intensive monitoring for toxicity (Heparin, Nitro, Insulin, Cardizem)? @ -No Were any procedures done? @ -No Diagnosis/symptom? @ -CHF exacerabtion, COPD exacerbation, multilobar pneumonia Acute, or Chronic, or Acute on Chronic? @ -acute Uncomplicated (without systemic symptoms) or Complicated (systemic symptoms)? @ -complicated Side effects of treatment? @ -No Exacerbation, Progression, or Severe Exacerbation? @ -No Poses a threat to life or bodily function? How? (Chest pain, USA, OR, pneumonia, PE, COPD, DKA, ARF, appy, cholecystitis, CVA, Diverticulitis, Homicidal, Suicidal, threat to staff... and all critical care pts) @ -yes - Lab Data Result diagrams: 04/24/24 00:55 04/24/24 00:55 Lab Results 04/24/24 04/24/24 04/24/24 Range/Units 00:55 00:55 00:55 WBC 9.4 (3.8-10.6) k/uL RBC 4.00 (3.80-5.40) m/uL Hgb 12.1 (11.4-16.0) gm/dL Hct 36.3 (34.0-46.0) % MCV 90.8 (80.0-100.0) fL MCH 30.3 (25.0-35.0) pg MCHC 33.3 (31.0-37.0) g/dL RDW 12.9 (11.5-15.5) % Plt Count 171 (150-450) k/uL MPV 7.5 Neutrophils % 83 % Lymphocytes % 8 % Monocytes % 7 % Eosinophils % 0 % Basophils % 0 % Neutrophils # 7.8 H (1.3-7.7) k/uL Lymphocytes # 0.7 L (1.0-4.8) k/uL Monocytes # 0.7 (0-1.0) k/uL Eosinophils # 0.0 (0-0.7) k/uL Basophils # 0.0 (0-0.2) k/uL PT 12.1 (10.0-12.5) sec INR 1.1 (<1.2) APTT 28.4 (22.0-30.0) sec VBG pH (7.31-7.41) VBG pCO2 (37-51) mmHg VBG HCO3 (24-28) mmol/L Sodium 133 L (137-145) mmol/L Potassium 4.0 (3.5-5.1) mmol/L Chloride 100 (98-107) mmol/L Carbon Dioxide 26 (22-30) mmol/L Anion Gap 7 mmol/L BUN 28 H (7-17) mg/dL Creatinine 0.98 (0.52-1.04) mg/dL Est GFR (CKD-EPI)AfAm 61 (>60 ml/min/1.73 sqM) Est GFR (CKD-EPI)NonAf 53 (>60 ml/min/1.73 sqM) Glucose 104 H (74-99) mg/dL Plasma Lactic Acid Jayson (0.7-2.0) mmol/L Calcium 9.4 (8.4-10.2) mg/dL Magnesium 1.6 (1.6-2.3) mg/dL Total Bilirubin 1.6 H (0.2-1.3) mg/dL AST 20 (14-36) U/L ALT 14 (4-34) U/L Alkaline Phosphatase 96 (38-126) U/L Troponin I (0.000-0.034) ng/mL NT-Pro-B Natriuret Pep 4510 pg/mL Total Protein 6.6 (6.3-8.2) g/dL Albumin 4.0 (3.5-5.0) g/dL Procalcitonin (0.02-0.50) ng/mL Influenza Type A (PCR) (Not Detectd) Influenza Type B (PCR) (Not Detectd) RSV (PCR) (Not Detectd) SARS-CoV-2 (PCR) (Not Detectd) 04/24/24 04/24/24 04/24/24 Range/Units 00:55 00:55 00:55 WBC (3.8-10.6) k/uL RBC (3.80-5.40) m/uL Hgb (11.4-16.0) gm/dL Hct (34.0-46.0) % MCV (80.0-100.0) fL MCH (25.0-35.0) pg MCHC (31.0-37.0) g/dL RDW (11.5-15.5) % Plt Count (150-450) k/uL MPV Neutrophils % % Lymphocytes % % Monocytes % % Eosinophils % % Basophils % % Neutrophils # (1.3-7.7) k/uL Lymphocytes # (1.0-4.8) k/uL Monocytes # (0-1.0) k/uL Eosinophils # (0-0.7) k/uL Basophils # (0-0.2) k/uL PT (10.0-12.5) sec INR (<1.2) APTT (22.0-30.0) sec VBG pH 7.37 (7.31-7.41) VBG pCO2 52 H (37-51) mmHg VBG HCO3 30 H (24-28) mmol/L Sodium (137-145) mmol/L Potassium (3.5-5.1) mmol/L Chloride (98-107) mmol/L Carbon Dioxide (22-30) mmol/L Anion Gap mmol/L BUN (7-17) mg/dL Creatinine (0.52-1.04) mg/dL Est GFR (CKD-EPI)AfAm (>60 ml/min/1.73 sqM) Est GFR (CKD-EPI)NonAf (>60 ml/min/1.73 sqM) Glucose (74-99) mg/dL Plasma Lactic Acid Jayson 2.0 (0.7-2.0) mmol/L Calcium (8.4-10.2) mg/dL Magnesium (1.6-2.3) mg/dL Total Bilirubin (0.2-1.3) mg/dL AST (14-36) U/L ALT (4-34) U/L Alkaline Phosphatase (38-126) U/L Troponin I 0.016 (0.000-0.034) ng/mL NT-Pro-B Natriuret Pep pg/mL Total Protein (6.3-8.2) g/dL Albumin (3.5-5.0) g/dL Procalcitonin (0.02-0.50) ng/mL Influenza Type A (PCR) (Not Detectd) Influenza Type B (PCR) (Not Detectd) RSV (PCR) (Not Detectd) SARS-CoV-2 (PCR) (Not Detectd) 04/24/24 04/24/24 Range/Units 00:55 01:14 WBC (3.8-10.6) k/uL RBC (3.80-5.40) m/uL Hgb (11.4-16.0) gm/dL Hct (34.0-46.0) % MCV (80.0-100.0) fL MCH (25.0-35.0) pg MCHC (31.0-37.0) g/dL RDW (11.5-15.5) % Plt Count (150-450) k/uL MPV Neutrophils % % Lymphocytes % % Monocytes % % Eosinophils % % Basophils % % Neutrophils # (1.3-7.7) k/uL Lymphocytes # (1.0-4.8) k/uL Monocytes # (0-1.0) k/uL Eosinophils # (0-0.7) k/uL Basophils # (0-0.2) k/uL PT (10.0-12.5) sec INR (<1.2) APTT (22.0-30.0) sec VBG pH (7.31-7.41) VBG pCO2 (37-51) mmHg VBG HCO3 (24-28) mmol/L Sodium (137-145) mmol/L Potassium (3.5-5.1) mmol/L Chloride (98-107) mmol/L Carbon Dioxide (22-30) mmol/L Anion Gap mmol/L BUN (7-17) mg/dL Creatinine (0.52-1.04) mg/dL Est GFR (CKD-EPI)AfAm (>60 ml/min/1.73 sqM) Est GFR (CKD-EPI)NonAf (>60 ml/min/1.73 sqM) Glucose (74-99) mg/dL Plasma Lactic Acid Jayson (0.7-2.0) mmol/L Calcium (8.4-10.2) mg/dL Magnesium (1.6-2.3) mg/dL Total Bilirubin (0.2-1.3) mg/dL AST (14-36) U/L ALT (4-34) U/L Alkaline Phosphatase (38-126) U/L Troponin I (0.000-0.034) ng/mL NT-Pro-B Natriuret Pep pg/mL Total Protein (6.3-8.2) g/dL Albumin (3.5-5.0) g/dL Procalcitonin 0.10 (0.02-0.50) ng/mL Influenza Type A (PCR) Not Detected (Not Detectd) Influenza Type B (PCR) Not Detected (Not Detectd) RSV (PCR) Not Detected (Not Detectd) SARS-CoV-2 (PCR) Not Detected (Not Detectd) Disposition Clinical Impression: CHF exacerbation, Hypoxemia requiring supplemental oxygen, Pneumonia Disposition: ADMITTED IP TO [facility] Condition: Serious Decision to Admit Reason: Admit from EC
[2024-04-24] MEDS: methylPREDNISolone SOD SUCCI 125 MG/2 ML VIAL IV STA (01:19)
[2024-04-24 01:31] LABS: Basophils % (A) 0 %; Eosinophils % (A) 0 %; HCT 36.3 % (34.0-46.0); HGB 12.1 gm/dL (11.4-16.0); Lymphocytes # (A) 0.7 k/uL (1.0-4.8); Lymphocytes % (A) 8 %; MCH 30.3 pg (25.0-35.0); MCHC 33.3 g/dL (31.0-37.0); MCV 90.8 fL (80.0-100.0); Mean Platelet Volume 7.5; Monocytes # (A) 0.7 k/uL (0-1.0); Monocytes % (A) 7 %; Neutrophils # (A) 7.8 k/uL (1.3-7.7); Neutrophils % (A) 83 %; Platelet Count 171 k/uL (150-450); RDW 12.9 % (11.5-15.5); WBC 9.4 k/uL (3.8-10.6)
[2024-04-24 01:37] LABS: VBG PH 7.37 (7.31-7.41)
[2024-04-24 01:39] LABS: INR 1.1 (<1.2); Partial Thromboplastin Time 28.4 sec (22.0-30.0); Prothrombin Time 12.1 sec (10.0-12.5)
[2024-04-24 01:52] LABS: ALT 14 U/L (4-34); AST 20 U/L (14-36); African American GFR (CKD) 61 (>60 ml/min/1.73 sqM); Alkaline Phosphatase 96 U/L (38-126); Anion Gap 7 mmol/L; Blood Urea Nitrogen 28 mg/dL (7-17); Calcium 9.4 mg/dL (8.4-10.2); Carbon Dioxide 26 mmol/L (22-30); Chloride 100 mmol/L (98-107); Glucose 104 mg/dL (74-99); Magnesium 1.6 mg/dL (1.6-2.3); Non-African American GFR(CKD) 53 (>60 ml/min/1.73 sqM); Sodium 133 mmol/L (137-145); Total Bilirubin 1.6 mg/dL (0.2-1.3); Total Protein 6.6 g/dL (6.3-8.2)
[2024-04-24 02:00] LABS: NT-Pro-B-Type Natriuretic Pept 4510 pg/mL
[2024-04-24] MEDS ORDERED: NALOXONE 0.4 MG/ML 1 ML VIAL IV PRN (02:41)
[2024-04-24] MEDS ORDERED: MORPHINE SULFATE 4 MG/ML SYRINGE IV PRN (02:41)
[2024-04-24] MEDS: FUROSEMIDE 10 MG/ML 4 ML VIAL IV STA (02:49)
--- NOTE | 2024-04-24 03:12 | XR ---
EXAM: XR Chest, 2 Views CLINICAL HISTORY: ITS.REASON XR Reason: difficulty breathing TECHNIQUE: Frontal and lateral views of the chest. COMPARISON: No relevant prior studies available. FINDINGS: Lungs: Dependent airspace consolidations, consistent with multilobar pneumonia. Pleural space: Unremarkable. No pneumothorax. Heart: Cardiomegaly. Mediastinum: Unremarkable. Normal mediastinal contour. Bones/joints: Sternotomy wires. No acute fracture. IMPRESSION: Dependent airspace consolidations, consistent with multilobar pneumonia.
[2024-04-24] MEDS: cefTRIAXone 1,000 MG VIAL (IM USE) IM STA (03:31)
[2024-04-24] MEDS: LEVOFLOXACIN 750MG-D5W PMX 750 MG in DEXTROSE/WATER 1 150ML.BAG IVPB STA (05:03)
[2024-04-24] MEDS: ALBUTEROL NEBULIZED 2.5 MG/3 ML INHALATION PRN (07:38)
[2024-04-24] MEDS ORDERED: DEXTROSE 50% SYRINGE 50 ML IVP PRN ×2 (08:11)
[2024-04-24] MEDS ORDERED: IPRATROPIUM-ALBUTEROL 3 ML NEB INHALATION PRN (08:36)
[2024-04-24] MEDS: MONTELUKAST 10 MG TAB PO SCH (08:59)
[2024-04-24] MEDS: APIXABAN 2.5 MG TABLET PO SCH (08:59)
[2024-04-24] MEDS: amLODIPine 5 MG TAB PO SCH (09:00)
[2024-04-24] MEDS: FERROUS SULFATE 325 MG TAB PO SCH (09:00)
[2024-04-24] MEDS: ATORVASTATIN 40 MG TAB PO SCH (09:00)
[2024-04-24] MEDS: lisinopriL 20 MG TAB PO SCH (09:00)
[2024-04-24] MEDS: ISOSORBIDE MONONITRATE ER 60 MG TAB.ER.24H PO SCH (09:00)
[2024-04-24] MEDS: carvediloL 6.25 MG TAB PO SCH (09:05)
[2024-04-24] MEDS: LEVOTHYROXINE 137 MCG TAB PO SCH (09:07)
[2024-04-24] MEDS: SERTRALINE 25 MG TAB PO SCH (09:07)
[2024-04-24] MEDS: IPRATROPIUM-ALBUTEROL 3 ML NEB INHALATION SCH (11:58)
[2024-04-24 12:08] LABS: Glucose,Whole Blood 268 mg/dL (70-110)
[2024-04-24] MEDS ORDERED: INSULIN ASPART (NovoLOG) 100 UNIT/ML VIAL SQ SCH (12:30)
[2024-04-24] MEDS: methylPREDNISolone SOD SUCCI 125 MG/2 ML VIAL IV SCH (12:40)
[2024-04-24] MEDS: INSULIN ASPART (NovoLOG) 100 UNIT/ML VIAL SQ SCH (12:40)
--- NOTE | 2024-04-24 13:03 | CA ---
Transthoracic Echo Report Name: Lauren Woods Age: 83 Gender: F : 1940 Exam Date: 04/24/2024 09:30 Exam Location: [facility] Ht (in): 64 Wt (lb): 147 Ordering Physician: Kasia Bansal Attending/Referring Phys: [employer]rosion Proofer Marge Inman RDCS Procedure CPT: Indications: chf Cardiac Hx: Technical Quality: Good Contrast 1: Total Dose (mL): Contrast 2: Total Dose (mL): MEASUREMENTS (Male / Female) Normal Values 2D ECHO LV Diastolic Diameter PLAX 4.8 cm 4.2 - 5.9 / 3.9 - 5.3 cm LV Systolic Diameter PLAX 3.0 cm IVS Diastolic Thickness 0.8 cm 0.6 - 1.0 / 0.6 - 0.9 cm LVPW Diastolic Thickness 0.7 cm 0.6 - 1.0 / 0.6 - 0.9 cm LV Relative Wall Thickness 0.3 LVOT Diameter 2.1 cm LV Diastolic Volume MOD BP 72.1 cm??? 67 - 155 / 56 - 104 cm??? LV Systolic Volume MOD BP 25.2 cm??? 22 - 58 / 19 - 49 cm??? LV Ejection Fraction MOD BP 65.1 % >= 55 % LV Cardiac Index MOD BP 2231.4 cm???/min???m??? LV Diastolic Volume MOD 4C 71.1 cm??? LV Systolic Volume MOD 4C 22.8 cm??? LV Ejection Fraction MOD 4C 67.9 % LV Cardiac Index MOD 4C 2292.0 cm???/min???m??? LV Diastolic Length 4C 6.9 cm LV Systolic Length 4C 5.7 cm LV Diastolic Volume MOD 2C 70.2 cm??? LV Systolic Volume MOD 2C 27.3 cm??? LV Ejection Fraction MOD 2C 61.1 % LV Cardiac Index MOD 2C 2039.1 cm???/min???m??? LV Diastolic Length 2C 7.2 cm LV Systolic Length 2C 5.8 cm LA Volume 77.7 cm??? 18 - 58 / 22 - 52 cm??? LA Volume Index 44.5 cm???/m??? 16 - 28 cm???/m??? Ascending Aorta Diameter 3.3 cm DOPPLER AV Peak Velocity 177.6 cm/s AV Peak Gradient 12.6 mmHg AV Mean Velocity 129.3 cm/s AV Mean Gradient 7.4 mmHg AV Velocity Time Integral 36.7 cm LVOT Peak Velocity 122.0 cm/s LVOT Peak Gradient 6.0 mmHg LVOT Velocity Time Integral 24.3 cm LVOT Stroke Volume 81.8 cm??? LVOT Stroke Volume Index 47.7 ml/m??? LVOT Cardiac Index 3885.2 cm???/min???m??? AV Area Cont Eq vti 2.2 cm??? AV Area Cont Eq pk 2.3 cm??? MV Area PHT 5.1 cm??? Mitral E Point Velocity 119.3 cm/s Mitral A Point Velocity 36.2 cm/s Mitral E to A Ratio 3.3 MV Deceleration Time 149.1 ms TR Peak Velocity 354.6 cm/s TR Peak Gradient 50.3 mmHg Right Atrial Pressure 10.0 mmHg Pulmonary Artery Systolic Pressu 60.3 mmHg Right Ventricular Systolic Press 60.3 mmHg PV Peak Velocity 99.9 cm/s PV Peak Gradient 4.0 mmHg FINDINGS Left Ventricle Left ventricular ejection fraction is estimated at 65-70 %. Left ventricular cavity size normal. Left ventricular cavity size normal. No obvious regional wall motion abnormalities. Right Ventricle Mild right ventricular dilatation with normal function. Severe pulmonary hypertension. Right Atrium Severe right atrial dilatation. Left Atrium Severely increased left atrial volume. Mildly increased left atrial area. Mitral Valve Mitral valve thickened. Mild mitral annular calcification. No evidence for mitral valve prolapse. No mitral stenosis. Mild mitral regurgitation. Aortic Valve Trileaflet aortic valve. No aortic stenosis. Mild aortic regurgitation. Tricuspid Valve Structurally normal tricuspid valve. No tricuspid stenosis. Moderate tricuspid regurgitation. Pulmonic Valve Pulmonic valve not well visualized. No pulmonic stenosis. Mild pulmonic regurgitation. Pericardium No pericardial effusion. Aorta Normal size aortic root and proximal ascending aorta. CONCLUSIONS Left ventricular ejection fraction 65-70% RVSP 60 Moderately dilated left atrium Mild mitral regurgitation Mild aortic regurgitation Moderate tricuspid regurgitation Previewed by: Dr. Kael Fowler DO (Electronically Signed) Final Date: 24 April 2024 13:02
--- NOTE | 2024-04-24 14:42 | P.HPIM ---
History of Present Illness H&P Date: 04/24/24 History of present illness; Patient is a 83-year-old female with CHF, COPD, diabetes mellitus, hypertension, hyperlipidemia, history of CABG, A-fib on Eliquis presents for shortness of breath. Patient states shortness of breath began 2 weeks ago and has gradually worsened. She also has 1 week of cough which has worsened in the last 4 days. It is reported by son in the room that her oxygen saturation was in the low 80s percent at home. She does not use home oxygen. She is compliant with her home medications. Currently she has no other symptoms and reports absence of fever, chills, weight loss, chest pain, diaphoresis, nausea, vomiting, constipation, diarrhea, abdominal pain, weakness, myalgia, dizziness, headache, and dysuria. EKG done in the ER independently interpreted showed A-fib heart rate of 66, no ST segment elevation or depression seen, no T-wave inversions seen. Chest x-ray done independently interpreted in the ER showed suspicious for multilobar pneumonia and cardiomegaly Spoke with the ER physician, patient admission was accepted by internal medicine service for treatment of COPD exacerbation and CHF exacerbation. REVIEW OF SYSTEMS: Pertinent positives and negatives noted in HPI. PHYSICAL EXAMINATION: Vitals reviewed GENERAL: No acute distress. Well developed, well nourished. HEENT: Pupils are round and equally reacting to light. EOMI. No scleral icterus. Normocephalic, atraumatic. CARDIOVASCULAR: S1 and S2 present. No murmurs, rubs, or gallops. PULMONARY: Scattered rhonchi bilaterally. mild wheezing, no crackles. ABDOMEN: Soft, nontender, nondistended, normoactive bowel sounds. No palpable organomegaly. MUSCULOSKELETAL: No apparent joint swelling and deformities. EXTREMITIES: No apparent cyanosis, clubbing, or pedal edema. NEUROLOGICAL: The patient is alert and oriented x3, Gross neurological examination did not reveal any focal deficits SKIN: No apparent rashes. Assessment and plan Patient is a 83-year-old female with COPD, diabetes mellitus, hypertension, hyperlipidemia, history of CABG, A-fib on Eliquis presents for shortness of breath. # Acute hypoxic respiratory failure due to COPD exacerbation #CHF exacerbation #A-fib VBG pH 7.37, pCO2 52 Initial WBC 9.4 proBNP 4510, baseline 08/2019 is 850 Procalcitonin 0.10 Continue breathing treatment DuoNeb, Solu-Medrol Given levofloxacin Continue ceftriaxone 2 g IV daily Continue IV Lasix 40 mg twice daily - Resume home Eliquis, Coreg Blood culture ordered Continuous cardiac monitoring Continue O2, maintain 9296% saturation Pulmonology and cardiology following #Hyperbilirubinemia Initial total bilirubin 1.6 Monitor CMP #Diabetes mellitus, type 2 Holding oral medications Begin Accu-Cheks and low-dose sliding scale, monitor for hypoglycemia Pending HbA1c Chronic Medical Conditions # Essential hypertension - Resume home Lisinopril, amlodipine #Hyperlidemia - Resume home Atorvastatin #Hypothyroidism - Resume home Synthroid #Anxiety/Depression - Resume home Sertraline F: P.o. E: Replete as needed N: Heart healthy diet DVT ppx: Resume Eliquis 2.5 twice daily Code status: Full code Anticipated discharge place: Home Anticipated discharge time: 2 to 3 days Dictation was produced using [employer] dictation software. Please excuse any grammatical, word or spelling errors. Dr. Nicki MD I have performed a history and physical examination and medical decision making of this patient, discussed the same with the the resident, and agree with the a ssessment and plan as written. I performed brief physical exam. Past Medical History Past Medical History: Atrial Fibrillation, Heart Failure, COPD, Diabetes Mellitus, Hyperlipidemia, Hypertension, Memory Impairment, Pneumonia, Thyroid Disorder Additional Past Medical History / Comment(s): left shoulder fracture from fall. History of Any Multi-Drug Resistant Organisms: None Reported Past Surgical History: Appendectomy, Cholecystectomy, Coronary Bypass/CABG, Hysterectomy, Joint Replacement, Orthopedic Surgery, Tonsillectomy Additional Past Surgical History / Comment(s): carotid endartetomy, left total knee Additional Past Anesthesia/Blood Transfusion Reaction / Comment(s): na Past Psychological History: No Psychological Hx Reported Smoking Status: Former smoker Past Alcohol Use History: None Reported Past Drug Use History: None Reported - Past Family History Mother Family Medical History: Myocardial Infarction ([place]) Medications and Allergies Home Medications Medication Instructions Recorded Confirmed Type Albuterol Inhaler [Ventolin Hfa 1 - 2 puff INHALATION RT-Q6H PRN 04/24/24 04/24/24 History Inhaler] Apixaban [Eliquis] 2.5 mg PO BID 04/24/24 04/24/24 History Atorvastatin Calcium [Lipitor] 40 mg PO DAILY 04/24/24 04/24/24 History Ferrous Sulfate [Feosol] 325 mg PO DAILY 04/24/24 04/24/24 History Furosemide [Lasix] 40 mg PO DAILY 04/24/24 04/24/24 History Isosorbide Mononitrate ER [Imdur] 60 mg PO DAILY 04/24/24 04/24/24 History Levothyroxine Sodium [Synthroid] 137 mcg PO DAILY 04/24/24 04/24/24 History Montelukast [Singulair] 10 mg PO DAILY 04/24/24 04/24/24 History Sertraline [Zoloft] 25 mg PO DAILY 04/24/24 04/24/24 History amLODIPine [Norvasc] 5 mg PO DAILY 04/24/24 04/24/24 History carvediloL [Coreg] 6.25 mg PO BID 04/24/24 04/24/24 History glipiZIDE XL [Glucotrol XL] 2.5 mg PO DAILY 04/24/24 04/24/24 History lisinopriL [Zestril] 20 mg PO DAILY 04/24/24 04/24/24 History metFORMIN HCL 1,000 mg PO BID 04/24/24 04/24/24 History Allergies Allergy/AdvReac Type Severity Reaction Status Date / Time azithromycin [From Zithromax] AdvReac Rapid Verified 04/24/24 05:46 Heart Rate Physical Exam Vitals: Vital Signs Temp Pulse Pulse Resp BP BP Pulse Ox 04/24/24 13:13 98.5 F 77 18 149/66 94 L 04/24/24 12:06 84 04/24/24 12:00 92 L 04/24/24 11:58 83 04/24/24 08:44 97.6 F 83 20 164/74 90 L 04/24/24 07:50 81 20 04/24/24 07:47 94 L 04/24/24 07:38 68 18 04/24/24 06:44 99.2 F 04/24/24 05:00 73 18 165/88 93 L 04/24/24 03:16 68 20 167/80 91 L 04/24/24 00:41 99.2 F 62 25 H 159/81 94 L Intake and Output 04/23/24 04/24/24 04/24/24 22:59 06:59 14:59 Output Total 1000 Balance -1000 Output: Urine 1000 Other: Voiding Method Diaper Incontinent Weight 66.678 kg 66.678 kg Results CBC & Chem 7: 04/25/24 03:48 04/25/24 03:48 Labs: Abnormal Lab Results - Last 24 Hours (Table) 04/24/24 04/24/24 04/24/24 Range/Units 00:55 00:55 00:55 Neutrophils # 7.8 H (1.3-7.7) k/uL Lymphocytes # 0.7 L (1.0-4.8) k/uL VBG pCO2 52 H (37-51) mmHg VBG HCO3 30 H (24-28) mmol/L Sodium 133 L (137-145) mmol/L BUN 28 H (7-17) mg/dL Glucose 104 H (74-99) mg/dL POC Glucose (mg/dL) (70-110) mg/dL Total Bilirubin 1.6 H (0.2-1.3) mg/dL 04/24/24 Range/Units 12:06 Neutrophils # (1.3-7.7) k/uL Lymphocytes # (1.0-4.8) k/uL VBG pCO2 (37-51) mmHg VBG HCO3 (24-28) mmol/L Sodium (137-145) mmol/L BUN (7-17) mg/dL Glucose (74-99) mg/dL POC Glucose (mg/dL) 268 H (70-110) mg/dL Total Bilirubin (0.2-1.3) mg/dL Thrombosis Risk Factor Assmnt - Choose All That Apply Each Factor Represents 1 point: Abnormal pulmonary function (COPD), Heart failure (<1month) Each Risk Factor Represents 3 Points: Age 75 years or older Other congenital or acquired thrombophilia - If yes, enter type in comment: No Thrombosis Risk Factor Assessment Total Risk Factor Score: 5 Thrombosis Risk Factor Assessment Level: High Risk
--- NOTE | 2024-04-24 14:57 | P.CNPUL ---
History of Present Illness Consult date: 04/24/24 Requesting physician: Irvin E Justin Reason for consult: dyspnea, cough, abnormal CXR/CT Chief complaint: Shortness of breath, cough, congestion History of present illness: This is an 83-year-old female patient with a history of dementia, atrial fibrillation on Eliquis, congestive heart failure, chronic obstructive pulmonary disease, diabetes mellitus, hypertension, hyperlipidemia, hypothyroidism. She was brought into the emergency room early this morning with a 2 to 3-day history of increasing shortness of breath cough and congestion. Breathing treatments at home were not helping. Her O2 saturations was in the low 80s. X-ray shows airspace consolidations consistent with multilobar pneumonia. EKG reveals atrial fibrillation. Echocardiogram reveals preserved left ventricular systolic function with ejection fraction of 65 to 70%. White count 9.4. Hemoglobin 12.1. Platelets 171. Sodium 133. Potassium 4.0. Bicarb 26. BUN 28. Creatinine 0.98. Glucose 104. proBNP 4510. Procalcitonin negative at 0.10. Viral screen negative. She is seen today in consultation on the regular medical floor. She is currently sitting up in bed. Awake and alert. Poor historian. Family is at the bedside and provides most of the information. Review of Systems ROS unobtainable: due to mental status Past Medical History Past Medical History: Atrial Fibrillation, Heart Failure, COPD, Diabetes Mellitus, Hyperlipidemia, Hypertension, Memory Impairment, Pneumonia, Thyroid Disorder Additional Past Medical History / Comment(s): left shoulder fracture from fall. History of Any Multi-Drug Resistant Organisms: None Reported Past Surgical History: Appendectomy, Cholecystectomy, Coronary Bypass/CABG, Hysterectomy, Joint Replacement, Orthopedic Surgery, Tonsillectomy Additional Past Surgical History / Comment(s): carotid endartetomy, left total knee Additional Past Anesthesia/Blood Transfusion Reaction / Comment(s): na Past Psychological History: No Psychological Hx Reported Smoking Status: Former smoker Past Alcohol Use History: None Reported Past Drug Use History: None Reported - Past Family History Mother Family Medical History: Myocardial Infarction ([place]) Medications and Allergies Home Medications Medication Instructions Recorded Confirmed Type Albuterol Inhaler [Ventolin Hfa 1 - 2 puff INHALATION RT-Q6H PRN 04/24/24 04/24/24 History Inhaler] Apixaban [Eliquis] 2.5 mg PO BID 04/24/24 04/24/24 History Atorvastatin Calcium [Lipitor] 40 mg PO DAILY 04/24/24 04/24/24 History Ferrous Sulfate [Feosol] 325 mg PO DAILY 04/24/24 04/24/24 History Furosemide [Lasix] 40 mg PO DAILY 04/24/24 04/24/24 History Isosorbide Mononitrate ER [Imdur] 60 mg PO DAILY 04/24/24 04/24/24 History Levothyroxine Sodium [Synthroid] 137 mcg PO DAILY 04/24/24 04/24/24 History Montelukast [Singulair] 10 mg PO DAILY 04/24/24 04/24/24 History Sertraline [Zoloft] 25 mg PO DAILY 04/24/24 04/24/24 History amLODIPine [Norvasc] 5 mg PO DAILY 04/24/24 04/24/24 History carvediloL [Coreg] 6.25 mg PO BID 04/24/24 04/24/24 History glipiZIDE XL [Glucotrol XL] 2.5 mg PO DAILY 04/24/24 04/24/24 History lisinopriL [Zestril] 20 mg PO DAILY 04/24/24 04/24/24 History metFORMIN HCL 1,000 mg PO BID 04/24/24 04/24/24 History Allergies Allergy/AdvReac Type Severity Reaction Status Date / Time azithromycin [From Zithromax] AdvReac Rapid Verified 04/24/24 05:46 Heart Rate Physical Exam Vitals: Vital Signs Temp Pulse Pulse Resp BP BP Pulse Ox 04/24/24 13:13 98.5 F 77 18 149/66 94 L 04/24/24 12:06 84 04/24/24 12:00 92 L 04/24/24 11:58 83 04/24/24 08:44 97.6 F 83 20 164/74 90 L 04/24/24 07:50 81 20 04/24/24 07:47 94 L 04/24/24 07:38 68 18 04/24/24 06:44 99.2 F 04/24/24 05:00 73 18 165/88 93 L 04/24/24 03:16 68 20 167/80 91 L 04/24/24 00:41 99.2 F 62 25 H 159/81 94 L Intake and Output 04/23/24 04/24/24 04/24/24 22:59 06:59 14:59 Output Total 1000 Balance -1000 Output: Urine 1000 Other: Voiding Method Diaper Incontinent Weight 66.678 kg 66.678 kg GENERAL EXAM: Alert, confused 83-year-old female, on 4 L nasal cannula, comfortable in no apparent distress. HEAD: Normocephalic. EYES: Normal reaction of pupils, equal size. NOSE: Clear with pink turbinates. THROAT: No erythema or exudates. NECK: No masses, no JVD. CHEST: No chest wall deformity. LUNGS: Equal air entry with crackles in the bilateral bases. CVS: S1 and S2 normal with no audible murmur, regular rhythm. ABDOMEN: No hepatosplenomegaly, normal bowel sounds, no guarding or rigidity. SPINE: No scoliosis or deformity SKIN: No rashes CENTRAL NERVOUS SYSTEM: Tone is normal in all 4 extremities. EXTREMITIES: There is no peripheral edema. No clubbing, no cyanosis. Peripheral pulses are intact. Results - Laboratory Findings CBC and BMP: 04/24/24 00:55 04/24/24 00:55 PT/INR, D-dimer PT 12.1 sec (10.0-12.5) 04/24/24 00:55 INR 1.1 (<1.2) 04/24/24 00:55 Abnormal lab findings: Abnormal Labs 04/24/24 04/24/24 04/24/24 00:55 00:55 00:55 Neutrophils # 7.8 H Lymphocytes # 0.7 L VBG pCO2 52 H VBG HCO3 30 H Sodium 133 L BUN 28 H Glucose 104 H POC Glucose (mg/dL) Total Bilirubin 1.6 H 04/24/24 12:06 Neutrophils # Lymphocytes # VBG pCO2 VBG HCO3 Sodium BUN Glucose POC Glucose (mg/dL) 268 H Total Bilirubin Assessment and Plan Assessment: Acute hypoxemic respiratory failure secondary to acute exacerbation of diastolic congestive heart failure. Procalcitonin negative. Viral screen negative. Acute exacerbation of chronic obstructive pulmonary disease Atrial fibrillation, anticoagulated with Eliquis Hypertension Hypothyroidism Diabetes mellitus Hyperlipidemia Dementia Plan: The patient was seen and evaluated Chest x-ray, labs and medications reviewed Add Lasix 40 mg IV push every 12 hours Add DuoNeb inhalations 4 times daily and as needed Add Solu-Medrol Procalcitonin negative No need for antibiotics currently We will continue to follow and make further recommendations based on her clinical status I have personally seen and examined the patient, performed the documentation and the assessment and plan as written. Number of minutes spent on the visit: 20 Dictation was produced using [employer] dictation software. Please excuse any grammatical, word or spelling errors.
--- NOTE | 2024-04-24 15:00 | P.CRDCN ---
History of Present Illness History of present illness: HISTORY OF PRESENTING ILLNESS This is a pleasant 83-year-old with past medical history significant for CAD status post CABG approximately 20 years ago, some dementia, diabetes mellitus type 2, COPD/asthma, hypertension, hyperlipidemia, persistent atrial fibrillation. 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 She states over last 1 month she has been having increasing shortness breath. Shortness breath occurs at rest and with exertion. She denies any chest pain or pressure. She denies any significant lower extremity edema. She has had a mild cough. No fevers or chills. Does have been persistent and not improving. She normally takes Lasix 40 mg daily at home. She was found to be in atrial fibrillation with controlled ventricular rates, she initially needed nonrebreather however currently on 4 L nasal cannula. Chest x-ray shows multifocal pneumonia. Troponin 0.016, 0.03, proBNP 4500, creatinine 0.9. She was started on IV Lasix as well as steroids and antibiotics. REVIEW OF SYSTEMS At the time of my exam: CONSTITUTIONAL: Denies fever or chills. CARDIOVASCULAR: Denies chest pain, +shortness of breath, no orthopnea, PND or palpitations. RESPIRATORY: + cough. GASTROINTESTINAL: Denies abdominal pain, diarrhea, constipation, nausea or vomiting. MUSCULOSKELETAL: Denies myalgias. NEUROLOGIC: Denies numbness, tingling or weakness. ENDOCRINE: Denies fatigue, weight change, polydipsia or polyurina. GENITOURINARY: Denies burning, hematuria or urgency with micturation. HEMATOLOGIC: Denies history of anemia or bleeding. PHYSICAL EXAMINATION Vital signs reviewed. CONSTITUTIONAL: No apparent distress. HEENT: Head is normocephalic. Pupils are equal, round. Sclerae anicteric. Mucous membranes of the mouth are moist. No JVD. No carotid bruit. CHEST EXAMINATION: Diffuse wheezes and crackles HEART EXAMINATION: Irregular rate and rhythm. S1, S2 heard. No murmurs, gallops or rub. ABDOMEN: Soft, nontender. Positive bowel sounds. EXTREMITIES: 2+ peripheral pulses, no lower extremity edema and no calf tenderness. NEUROLOGIC EXAMINATION: Patient is awake, poor recall ASSESSMENT Acute on chronic respiratory failure, appears more pulmonary with cough and chest x-ray concerning for multifocal pneumonia Acute on chronic diastolic heart failure Pulmonary hypertension likely related to underlying pulmonary disease CAD status post CABG Persistent atrial fibrillation with controlled ventricular rates Hypertension Hyperlipidemia Diabetes mellitus type 2 Dementia PLAN Majority of symptoms more likely related to pulmonary source. Pro-calcitonin however relatively normal at 0.1. Continue the anticoagulation for atrial fibrillation. Heart rates appear controlled. Echo showing preserved EF however significantly elevated RVSP likely related to underlying pulmonary disease. Continue with diuresis and monitor creatinine closely. Further recommendations to follow. Past Medical History Past Medical History: Atrial Fibrillation, Heart Failure, COPD, Diabetes Mellitus, Hyperlipidemia, Hypertension, Memory Impairment, Pneumonia, Thyroid Disorder Additional Past Medical History / Comment(s): left shoulder fracture from fall. History of Any Multi-Drug Resistant Organisms: None Reported Past Surgical History: Appendectomy, Cholecystectomy, Coronary Bypass/CABG, Hysterectomy, Joint Replacement, Orthopedic Surgery, Tonsillectomy Additional Past Surgical History / Comment(s): carotid endartetomy, left total knee Additional Past Anesthesia/Blood Transfusion Reaction / Comment(s): na Past Psychological History: No Psychological Hx Reported Smoking Status: Former smoker Past Alcohol Use History: None Reported Past Drug Use History: None Reported - Past Family History Mother Family Medical History: Myocardial Infarction ([place]) Medications and Allergies Home Medications Medication Instructions Recorded Confirmed Type Albuterol Inhaler [Ventolin Hfa 1 - 2 puff INHALATION RT-Q6H PRN 04/24/24 04/24/24 History Inhaler] Apixaban [Eliquis] 2.5 mg PO BID 04/24/24 04/24/24 History Atorvastatin Calcium [Lipitor] 40 mg PO DAILY 04/24/24 04/24/24 History Ferrous Sulfate [Feosol] 325 mg PO DAILY 04/24/24 04/24/24 History Furosemide [Lasix] 40 mg PO DAILY 04/24/24 04/24/24 History Isosorbide Mononitrate ER [Imdur] 60 mg PO DAILY 04/24/24 04/24/24 History Levothyroxine Sodium [Synthroid] 137 mcg PO DAILY 04/24/24 04/24/24 History Montelukast [Singulair] 10 mg PO DAILY 04/24/24 04/24/24 History Sertraline [Zoloft] 25 mg PO DAILY 04/24/24 04/24/24 History amLODIPine [Norvasc] 5 mg PO DAILY 04/24/24 04/24/24 History carvediloL [Coreg] 6.25 mg PO BID 04/24/24 04/24/24 History glipiZIDE XL [Glucotrol XL] 2.5 mg PO DAILY 04/24/24 04/24/24 History lisinopriL [Zestril] 20 mg PO DAILY 04/24/24 04/24/24 History metFORMIN HCL 1,000 mg PO BID 04/24/24 04/24/24 History Allergies Allergy/AdvReac Type Severity Reaction Status Date / Time azithromycin [From Zithromax] AdvReac Rapid Verified 04/24/24 05:46 Heart Rate Physical Exam Vitals: Vital Signs Temp Pulse Pulse Resp BP BP Pulse Ox 04/24/24 13:13 98.5 F 77 18 149/66 94 L 04/24/24 12:06 84 04/24/24 12:00 92 L 04/24/24 11:58 83 04/24/24 08:44 97.6 F 83 20 164/74 90 L 04/24/24 07:50 81 20 04/24/24 07:47 94 L 04/24/24 07:38 68 18 04/24/24 06:44 99.2 F 04/24/24 05:00 73 18 165/88 93 L 04/24/24 03:16 68 20 167/80 91 L 04/24/24 00:41 99.2 F 62 25 H 159/81 94 L Intake and Output 04/24/24 04/24/24 04/24/24 06:59 14:59 22:59 Output Total 1000 Balance -1000 Output: Urine 1000 Other: Voiding Method Diaper Incontinent Weight 66.678 kg 64 kg Results 04/24/24 00:55 04/24/24 00:55 Cardiac Enzymes 04/24/24 04/24/24 04/24/24 Range/Units 00:55 00:55 03:56 AST 20 (14-36) U/L Troponin I 0.016 0.031 (0.000-0.034) ng/mL Coagulation 04/24/24 Range/Units 00:55 PT 12.1 (10.0-12.5) sec APTT 28.4 (22.0-30.0) sec CBC 04/24/24 Range/Units 00:55 WBC 9.4 (3.8-10.6) k/uL RBC 4.00 (3.80-5.40) m/uL Hgb 12.1 (11.4-16.0) gm/dL Hct 36.3 (34.0-46.0) % Plt Count 171 (150-450) k/uL Comprehensive Metabolic Panel 04/24/24 Range/Units 00:55 Sodium 133 L (137-145) mmol/L Potassium 4.0 (3.5-5.1) mmol/L Chloride 100 (98-107) mmol/L Carbon Dioxide 26 (22-30) mmol/L BUN 28 H (7-17) mg/dL Creatinine 0.98 (0.52-1.04) mg/dL Glucose 104 H (74-99) mg/dL Calcium 9.4 (8.4-10.2) mg/dL AST 20 (14-36) U/L ALT 14 (4-34) U/L Alkaline Phosphatase 96 (38-126) U/L Total Protein 6.6 (6.3-8.2) g/dL Albumin 4.0 (3.5-5.0) g/dL Current Medications Generic Name Dose Route Start Last Admin Trade Name Freq PRN Reason Stop Dose Admin Acetaminophen 650 mg 04/24/24 02:41 Acetaminophen Tab 325 Mg Tab PO Q6HR PRN Mild to mod Pain/Fever >100.5 Albuterol/Ipratropium 3 ml 04/24/24 12:00 04/24/24 11:58 Ipratropium-Albuterol 3 Ml Neb INHALATION 3 ml RT-QID WALLACE Administration Albuterol/Ipratropium 3 ml 04/24/24 08:36 Ipratropium-Albuterol 3 Ml Neb INHALATION RT-Q2H PRN Shortness Of Breath Or Wheezing Amlodipine Besylate 5 mg 04/24/24 09:00 04/24/24 09:00 Amlodipine 5 Mg Tab PO 5 mg DAILY WALLACE Administration Apixaban 2.5 mg 04/24/24 09:00 04/24/24 08:59 Apixaban 2.5 Mg Tablet PO 2.5 mg BID WALLACE Administration Protocol Atorvastatin Calcium 40 mg 04/24/24 09:00 04/24/24 09:00 Atorvastatin 40 Mg Tab PO 40 mg DAILY WALLACE Administration Carvedilol 6.25 mg 04/24/24 09:00 04/24/24 09:05 Carvedilol 6.25 Mg Tab PO 6.25 mg BID-W/MEALS WALLACE Administration Dextrose/Water 25 ml 04/24/24 08:11 Dextrose 50% Syringe 50 Ml IVP PER PROTOCOL PRN Hypoglycemia Protocol Dextrose/Water 50 ml 04/24/24 08:11 Dextrose 50% Syringe 50 Ml IVP PER PROTOCOL PRN Hypoglycemia Protocol Ferrous Sulfate 325 mg 04/24/24 09:00 04/24/24 09:00 Ferrous Sulfate 325 Mg Tab PO 325 mg DAILY WALLACE Administration Furosemide 40 mg 04/24/24 21:00 Furosemide 10 Mg/Ml 4 Ml Vial IV Q12HR WALLACE Insulin Aspart 0 unit 04/24/24 12:30 04/24/24 12:40 Insulin Aspart (Novolog) 100 Unit/Ml Vial SQ 3 unit ACHS WALLACE Administration Protocol Isosorbide Mononitrate 60 mg 04/24/24 09:00 04/24/24 09:00 Isosorbide Mononitrate Er 60 Mg Tab.Er.24h PO 60 mg DAILY WALLACE Administration Levothyroxine Sodium 137 mcg 04/24/24 09:00 04/24/24 09:07 Levothyroxine 137 Mcg Tab PO 137 mcg DAILY@0630 WALLACE Administration Lisinopril 20 mg 04/24/24 09:00 04/24/24 09:00 Lisinopril 20 Mg Tab PO 20 mg DAILY WALLACE Administration Methylprednisolone Sodium Succinate 60 mg 04/24/24 12:00 04/24/24 12:40 Methylprednisolone Sod Succi 125 Mg/2 Ml Vial IV 60 mg Q6HR WALLACE Administration Montelukast Sodium 10 mg 04/24/24 09:00 04/24/24 08:59 Montelukast 10 Mg Tab PO 10 mg DAILY WALLACE Administration Morphine Sulfate 4 mg 04/24/24 02:41 Morphine Sulfate 4 Mg/Ml Syringe IV Q4HR PRN Severe Pain (Scale 7 to 10) Naloxone HCl 0.2 mg 04/24/24 02:41 Naloxone 0.4 Mg/Ml 1 Ml Vial IV Q2M PRN Opioid Reversal Sertraline HCl 25 mg 04/24/24 09:00 04/24/24 09:07 Sertraline 25 Mg Tab PO 25 mg DAILY WALLACE Administration Intake and Output 04/24/24 04/24/24 04/24/24 06:59 14:59 22:59 Output Total 1000 Balance -1000 Output: Urine 1000 Other: Voiding Method Diaper Incontinent Weight 66.678 kg 64 kg Patient Weight 04/25/24 06:59 Weight 64 kg 04/24/24 00:55 04/24/24 00:55
[2024-04-24] MEDS ORDERED: ZINC OXIDE PASTE (Z-GUARD) 1 APPLIC TOPICAL PRN (16:50)
[2024-04-24 17:10] LABS: Glucose,Whole Blood 209 mg/dL (70-110)
[2024-04-24 20:09] LABS: Glucose,Whole Blood 241 mg/dL (70-110)
[2024-04-24] MEDS: FUROSEMIDE 10 MG/ML 4 ML VIAL IV SCH (20:15)
[2024-04-25 07:00] LABS: Glucose,Whole Blood 209 mg/dL (70-110)
[2024-04-25] MEDS ORDERED: VANCOMYCIN IV PER PHARMACY 1 EACH MISC MISCELLANE PRN (08:03)
[2024-04-25 08:30] LABS: Basophils # (A) 0.01 X 10*3/uL (0.00-0.10); Basophils % (A) 0.1 %; Eosinophils # (A) 0 X 10*3/uL (0.04-0.35); Eosinophils % (A) 0 %; HCT 38.2 % (37.2-46.3); HGB 12.7 g/dL (12.0-15.0); Lymphocytes # (A) 0.38 X 10*3/uL (0.90-5.00); Lymphocytes % (A) 3.9 %; MCH 29.6 pg (27.0-32.0); MCHC 33.2 g/dL (32.0-37.0); Mean Platelet Volume 10.4 FL (9.5-12.2); Monocytes # (A) 0.32 X 10*3/uL (0.20-1.00); Monocytes % (A) 3.3 %; NRBC Per 100 WBC 0 X 10*3/uL (0.00-0.01); Neutrophils # (A) 8.96 X 10*3/uL (1.80-7.70); Neutrophils % (A) 92.4 %; Platelet Count 219 X 10*3/uL (140-440); RBC 4.29 X 10*6/uL (4.10-5.20)
[2024-04-25 08:36] LABS: Blood Urea Nitrogen 29.9 mg/dL (9.0-27.0); Carbon Dioxide 24.9 mmol/L (21.6-31.8); Chloride 96 mmol/L (96-109); Glucose 213 mg/dL (70-110); Potassium 3.6 mmol/L (3.5-5.5); Sodium 136 mmol/L (135-145)
[2024-04-25 08:37] LABS: ALT 13 U/L (8-44); AST 16 U/L (13-35); Albumin 4.2 g/dL (3.8-4.9); Albumin/Globulin Ratio 1.75 Ratio (1.60-3.17); Alkaline Phosphatase 97 U/L (41-126); Calcium 9.5 mg/dL (8.7-10.3); Globulin 2.4 g/dL (1.6-3.3); Total Bilirubin 0.9 mg/dL (0.3-1.2); Total Protein 6.6 g/dL (6.2-8.2)
[2024-04-25] MEDS: VANCOMYCIN 1,250 MG in SODIUM CHLORIDE 0.9% 250 ML IVPB ONE (09:12)
--- NOTE | 2024-04-25 11:21 | P.PN ---
Subjective HISTORY OF PRESENTING ILLNESS This is a pleasant 83-year-old with past medical history significant for CAD status post CABG approximately 20 years ago, some dementia, diabetes mellitus type 2, COPD/asthma, hypertension, hyperlipidemia, persistent atrial fibrillation. 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 She states over last 1 month she has been having increasing shortness breath. Shortness breath occurs at rest and with exertion. She denies any chest pain or pressure. She denies any significant lower extremity edema. She has had a mild cough. No fevers or chills. Does have been persistent and not improving. She normally takes Lasix 40 mg daily at home. She was found to be in atrial fibrillation with controlled ventricular rates, she initially needed nonrebreather however currently on 4 L nasal cannula. Chest x-ray shows multifocal pneumonia. Troponin 0.016, 0.03, proBNP 4500, creatinine 0.9. She was started on IV Lasix as well as steroids and antibiotics. 04/25 Patient seen and examined. Patient states she feels fairly similar to yesterday. Remains on IV Lasix 40 mg twice a day. Creatinine stable 1.0. PHYSICAL EXAMINATION Vital signs reviewed. CONSTITUTIONAL: No apparent distress. HEENT: Head is normocephalic. Pupils are equal, round. Sclerae anicteric. Mucous membranes of the mouth are moist. No JVD. No carotid bruit. CHEST EXAMINATION: Diffuse wheezes and crackles HEART EXAMINATION: Irregular rate and rhythm. S1, S2 heard. No murmurs, gallops or rub. ABDOMEN: Soft, nontender. Positive bowel sounds. EXTREMITIES: 2+ peripheral pulses, no lower extremity edema and no calf tenderness. NEUROLOGIC EXAMINATION: Patient is awake, poor recall ASSESSMENT Acute on chronic respiratory failure, appears more pulmonary with cough and chest x-ray concerning for multifocal pneumonia Acute on chronic diastolic heart failure Pulmonary hypertension likely related to underlying pulmonary disease CAD status post CABG Persistent atrial fibrillation with controlled ventricular rates Hypertension Hyperlipidemia Diabetes mellitus type 2 Dementia PLAN Echo showing preserved EF however significantly elevated RVSP likely related to underlying pulmonary disease. Patient with significant wheezing on exam and appears more pulmonary source. Continue steroids and antibiotics. Continue with IV diuretics for at least another 24 hours. Further recommendations to follow. Objective - Vital Signs Vital signs: Vital Signs Temp 97.6 F 04/25/24 07:33 Pulse 84 04/25/24 09:08 Resp 16 04/25/24 07:33 BP 170/89 04/25/24 07:33 Pulse Ox 91 L 04/25/24 08:56 FiO2 Intake & Output 04/24/24 04/25/24 04/25/24 18:59 06:59 18:59 Intake Total 120 240 Balance 120 240 Weight 64 kg 60.5 kg Intake: Oral 120 240 Other: Voiding Method Diaper Diaper Diaper Incontinent Incontinent Incontinent # Voids 2 4 - Labs CBC & Chem 7: 04/25/24 03:48 04/25/24 03:48 Labs: Abnormal Lab Results - Last 24 Hours (Table) 04/24/24 04/24/24 04/24/24 Range/Units 12:06 17:08 20:08 Neutrophils # (1.80-7.70) X 10*3/uL Lymphocytes # (0.90-5.00) X 10*3/uL Eosinophils # (0.04-0.35) X 10*3/uL Anion Gap (4.00-12.00) mmol/L BUN (9.0-27.0) mg/dL Est GFR (CKD-EPI) (>=60) BUN/Creatinine Ratio (12.00-20.00) Ratio Glucose (70-110) mg/dL POC Glucose (mg/dL) 268 H 209 H 241 H (70-110) mg/dL Hemoglobin A1c (<=6.0) % 04/25/24 04/25/24 04/25/24 Range/Units 03:48 03:48 03:48 Neutrophils # 8.96 H (1.80-7.70) X 10*3/uL Lymphocytes # 0.38 L (0.90-5.00) X 10*3/uL Eosinophils # 0 L (0.04-0.35) X 10*3/uL Anion Gap 15.10 H (4.00-12.00) mmol/L BUN 29.9 H (9.0-27.0) mg/dL Est GFR (CKD-EPI) 56 L (>=60) BUN/Creatinine Ratio 29.90 H (12.00-20.00) Ratio Glucose 213 H (70-110) mg/dL POC Glucose (mg/dL) (70-110) mg/dL Hemoglobin A1c 6.3 H (<=6.0) % 04/25/24 Range/Units 06:54 Neutrophils # (1.80-7.70) X 10*3/uL Lymphocytes # (0.90-5.00) X 10*3/uL Eosinophils # (0.04-0.35) X 10*3/uL Anion Gap (4.00-12.00) mmol/L BUN (9.0-27.0) mg/dL Est GFR (CKD-EPI) (>=60) BUN/Creatinine Ratio (12.00-20.00) Ratio Glucose (70-110) mg/dL POC Glucose (mg/dL) 209 H (70-110) mg/dL Hemoglobin A1c (<=6.0) % Microbiology - Last 24 Hours (Table) 04/24/24 04:00 Blood Culture Gram Stain - Preliminary Blood Blood Culture - Preliminary Molecular ID
[2024-04-25 12:03] LABS: Glucose,Whole Blood 208 mg/dL (70-110)
--- NOTE | 2024-04-25 14:15 | P.PN ---
Subjective Progress Note Date: 04/25/24 This is an 83-year-old female patient with a history of dementia, atrial fibrillation on Eliquis, congestive heart failure, chronic obstructive pulmonary disease, diabetes mellitus, hypertension, hyperlipidemia, hypothyroidism. She was brought into the emergency room early this morning with a 2 to 3-day history of increasing shortness of breath cough and congestion. Breathing treatments at home were not helping. Her O2 saturations was in the low 80s. X-ray shows airspace consolidations consistent with multilobar pneumonia. EKG reveals atrial fibrillation. Echocardiogram reveals preserved left ventricular systolic function with ejection fraction of 65 to 70%. White count 9.4. Hemoglobin 12. 1. Platelets 171. Sodium 133. Potassium 4.0. Bicarb 26. BUN 28. Creatinine 0.98. Glucose 104. proBNP 4510. Procalcitonin negative at 0.10. Viral screen negative. She is seen today in consultation on the regular medical floor. She is currently sitting up in bed. Awake and alert. Poor historian. Family is at the bedside and provides most of the information. The patient is seen today April 25, 2024 in follow-up on the regular medical floor. She is currently sitting up in a chair at the bedside. Awake and alert in no acute distress. She is maintaining good O2 saturations in the 90s on 4 L/min per nasal cannula. She is continued on DuoNeb inhalations, Solu-Medrol. Remains on IV diuretics. Anticoagulated with Eliquis. Antibiotics in the form of vancomycin. Blood cultures positive for gram positive cocci in clusters Staphylococcus species detected. White count 9.7. Hemoglobin 12.7. Platelets 219. Sodium 136. Potassium 3.6. Bicarb 25. BUN 30. Creatinine 1.0. Glucose 213. AST 16. ALT 13. Objective - Vital Signs Vital signs: Vital Signs Temp 97.7 F 04/25/24 13:10 Pulse 71 04/25/24 13:10 Resp 19 04/25/24 13:10 BP 114/61 04/25/24 13:10 Pulse Ox 91 L 04/25/24 13:10 FiO2 Intake & Output 04/24/24 04/25/24 04/25/24 18:59 06:59 18:59 Intake Total 120 240 Balance 120 240 Weight 64 kg 60.5 kg Intake: Oral 120 240 Other: Voiding Method Diaper Diaper Diaper Incontinent Incontinent Incontinent # Voids 2 4 - Exam GENERAL EXAM: Alert, 83-year-old female, up in a chair on 4 L nasal cannula, comfortable in no apparent distress. HEAD: Normocephalic. EYES: Normal reaction of pupils, equal size. NOSE: Clear with pink turbinates. THROAT: No erythema or exudates. NECK: No masses, no JVD. CHEST: No chest wall deformity. LUNGS: Equal air entry with crackles in the bilateral bases. CVS: S1 and S2 normal with no audible murmur, regular rhythm. ABDOMEN: No hepatosplenomegaly, normal bowel sounds, no guarding or rigidity. SPINE: No scoliosis or deformity SKIN: No rashes CENTRAL NERVOUS SYSTEM: Tone is normal in all 4 extremities. EXTREMITIES: There is no peripheral edema. No clubbing, no cyanosis. Peripheral pulses are intact. - Labs CBC & Chem 7: 04/25/24 03:48 04/25/24 03:48 Labs: Abnormal Lab Results - Last 24 Hours (Table) 04/24/24 04/24/24 04/25/24 Range/Units 17:08 20:08 03:48 Neutrophils # (1.80-7.70) X 10*3/uL Lymphocytes # (0.90-5.00) X 10*3/uL Eosinophils # (0.04-0.35) X 10*3/uL Anion Gap (4.00-12.00) mmol/L BUN (9.0-27.0) mg/dL Est GFR (CKD-EPI) (>=60) BUN/Creatinine Ratio (12.00-20.00) Ratio Glucose (70-110) mg/dL POC Glucose (mg/dL) 209 H 241 H (70-110) mg/dL Hemoglobin A1c 6.3 H (<=6.0) % 04/25/24 04/25/24 04/25/24 Range/Units 03:48 03:48 06:54 Neutrophils # 8.96 H (1.80-7.70) X 10*3/uL Lymphocytes # 0.38 L (0.90-5.00) X 10*3/uL Eosinophils # 0 L (0.04-0.35) X 10*3/uL Anion Gap 15.10 H (4.00-12.00) mmol/L BUN 29.9 H (9.0-27.0) mg/dL Est GFR (CKD-EPI) 56 L (>=60) BUN/Creatinine Ratio 29.90 H (12.00-20.00) Ratio Glucose 213 H (70-110) mg/dL POC Glucose (mg/dL) 209 H (70-110) mg/dL Hemoglobin A1c (<=6.0) % 04/25/24 Range/Units 12:01 Neutrophils # (1.80-7.70) X 10*3/uL Lymphocytes # (0.90-5.00) X 10*3/uL Eosinophils # (0.04-0.35) X 10*3/uL Anion Gap (4.00-12.00) mmol/L BUN (9.0-27.0) mg/dL Est GFR (CKD-EPI) (>=60) BUN/Creatinine Ratio (12.00-20.00) Ratio Glucose (70-110) mg/dL POC Glucose (mg/dL) 208 H (70-110) mg/dL Hemoglobin A1c (<=6.0) % Microbiology - Last 24 Hours (Table) 04/24/24 04:00 Blood Culture Gram Stain - Preliminary Blood Blood Culture - Preliminary Molecular ID Assessment and Plan Assessment: Acute hypoxemic respiratory failure secondary to acute exacerbation of diastolic congestive heart failure. Procalcitonin negative. Viral screen negative Bacteremia secondary to Staphylococcus species, initiated on vancomycin Acute exacerbation of chronic obstructive pulmonary disease Atrial fibrillation, anticoagulated with Eliquis Hypertension Hypothyroidism Diabetes mellitus Hyperlipidemia Dementia Plan: The patient was seen and evaluated Labs and medications reviewed Continue vancomycin, blood cultures pending Continue Lasix 40 mg IV push every 12 hours Continue DuoNeb inhalations, Solu-Medrol Titrate down the FiO2 as tolerated Follow-up chest x-ray in a.m. We will continue to follow I have personally seen and examined the patient, performed the documentation and the assessment and plan as written. Number of minutes spent on the visit: 10 Dictation was produced using [employer] dictation software. Please excuse any grammatical, word or spelling errors.
[2024-04-25] MEDS ORDERED: methylPREDNISolone SOD SUCCI 125 MG/2 ML VIAL IV SCH (16:00)
--- NOTE | 2024-04-25 16:24 | P.PN ---
Subjective Progress Note Date: 04/25/24 History of present illness; Patient is a 83-year-old female with CHF, COPD, diabetes mellitus, hypertension, hyperlipidemia, history of CABG, A-fib on Eliquis presents for shortness of breath. Patient states shortness of breath began 2 weeks ago and has gradually worsened. She also has 1 week of cough which has worsened in the last 4 days. It is reported by son in the room that her oxygen saturation was in the low 80s percent at home. She does not use home oxygen. She is compliant with her home medications. Currently she has no other symptoms and reports absence of fever, chills, weight loss, chest pain, diaphoresis, nausea, vomiting, constipation, diarrhea, abdominal pain, weakness, myalgia, dizziness, headache, and dysuria. EKG done in the ER independently interpreted showed A-fib heart rate of 66, no ST segment elevation or depression seen, no T-wave inversions seen. Chest x-ray done independently interpreted in the ER showed suspicious for multilobar pneumonia and cardiomegaly Progress note April 25, 2024 Patient seen and examined at bedside. No events overnight but patient does states that she was dizzy this morning. She is on 4 L nasal cannula. Blood cultures resulted in Staphylococcus and patient was subsequently started on vancomycin. She continues to receive IV Lasix twice daily and bronchodilator breathing treatments. Pulmonology and cardiology notes reviewed. Labs WBC 9.7, hemoglobin 12.7, sodium 136, potassium 3.6, bicarb 24.9, BUN 29.9, creatinine 1.0, glucose 213 REVIEW OF SYSTEMS: Pertinent positives and negatives noted in HPI. PHYSICAL EXAMINATION: Vitals reviewed GENERAL: No acute distress. Well developed, well nourished. HEENT: Pupils are round and equally reacting to light. EOMI. No scleral icterus. Normocephalic, atraumatic. CARDIOVASCULAR: S1 and S2 present. No murmurs, rubs, or gallops. PULMONARY: Scattered rhonchi bilaterally. mild wheezing, no crackles. ABDOMEN: Soft, nontender, nondistended, normoactive bowel sounds. No palpable organomegaly. MUSCULOSKELETAL: No apparent joint swelling and deformities. EXTREMITIES: No apparent cyanosis, clubbing, or pedal edema. NEUROLOGICAL: The patient is alert and oriented x3, Gross neurological examination did not reveal any focal deficits SKIN: No apparent rashes. Assessment and plan Patient is a 83-year-old female with COPD, diabetes mellitus, hypertension, hyperlipidemia, history of CABG, A-fib on Eliquis presents for shortness of breath. # Acute hypoxic respiratory failure due to COPD exacerbation #A-fib Initial VBG pH 7.37, pCO2 52 Initial WBC 9.4 proBNP 4510, baseline 08/2019 is 850 Procalcitonin 0.10 Continue breathing treatment DuoNeb, Solu-Medrol Discontinued levofloxacin and ceftriaxone Continue IV Lasix 40 mg twice daily - Resume home Eliquis, Coreg Continuous cardiac monitoring Continue O2, maintain 9296% saturation Pulmonology and cardiology following #Bacteremia Blood culture with Staphylococcus, repeat blood culture Begin vancomycin 1000 mg daily ID consulted #Hyperbilirubinemia Initial total bilirubin 1.6 => 0.9 Monitor CMP #Diabetes mellitus, type 2 Holding oral medications Begin Accu-Cheks and low-dose sliding scale, monitor for hypoglycemia HbA1c 6.3 Chronic Medical Conditions # Essential hypertension - Resume home Lisinopril, amlodipine #Hyperlidemia - Resume home Atorvastatin #Hypothyroidism - Resume home Synthroid #Anxiety/Depression - Resume home Sertraline F: P.o. E: Replete as needed N: Heart healthy diet DVT ppx: Resume Eliquis 2.5 twice daily Code status: Full code Anticipated discharge place: Home Anticipated discharge time: 2 to 3 days Dictation was produced using [employer] dictation software. Please excuse any grammatical, word or spelling errors. Dr. Nicki MD I have performed a history and physical examination and medical decision making of this patient, discussed the same with the the resident, and agree with the assessment and plan as written. I performed brief physical exam. Objective - Vital Signs Vital signs: Vital Signs Temp 97.7 F 04/25/24 13:10 Pulse 80 04/25/24 16:05 Resp 19 04/25/24 13:10 BP 114/61 04/25/24 13:10 Pulse Ox 91 L 04/25/24 13:10 FiO2 Intake & Output 04/24/24 04/25/24 04/25/24 18:59 06:59 18:59 Intake Total 120 240 Balance 120 240 Weight 64 kg 60.5 kg Intake: Oral 120 240 Other: Voiding Method Diaper Diaper Diaper Incontinent Incontinent Incontinent # Voids 2 4 - Labs CBC & Chem 7: 04/25/24 03:48 04/25/24 03:48 Labs: Abnormal Lab Results - Last 24 Hours (Table) 04/24/24 04/24/24 04/25/24 Range/Units 17:08 20:08 03:48 Neutrophils # (1.80-7.70) X 10*3/uL Lymphocytes # (0.90-5.00) X 10*3/uL Eosinophils # (0.04-0.35) X 10*3/uL Anion Gap (4.00-12.00) mmol/L BUN (9.0-27.0) mg/dL Est GFR (CKD-EPI) (>=60) BUN/Creatinine Ratio (12.00-20.00) Ratio Glucose (70-110) mg/dL POC Glucose (mg/dL) 209 H 241 H (70-110) mg/dL Hemoglobin A1c 6.3 H (<=6.0) % 04/25/24 04/25/24 04/25/24 Range/Units 03:48 03:48 06:54 Neutrophils # 8.96 H (1.80-7.70) X 10*3/uL Lymphocytes # 0.38 L (0.90-5.00) X 10*3/uL Eosinophils # 0 L (0.04-0.35) X 10*3/uL Anion Gap 15.10 H (4.00-12.00) mmol/L BUN 29.9 H (9.0-27.0) mg/dL Est GFR (CKD-EPI) 56 L (>=60) BUN/Creatinine Ratio 29.90 H (12.00-20.00) Ratio Glucose 213 H (70-110) mg/dL POC Glucose (mg/dL) 209 H (70-110) mg/dL Hemoglobin A1c (<=6.0) % 04/25/24 Range/Units 12:01 Neutrophils # (1.80-7.70) X 10*3/uL Lymphocytes # (0.90-5.00) X 10*3/uL Eosinophils # (0.04-0.35) X 10*3/uL Anion Gap (4.00-12.00) mmol/L BUN (9.0-27.0) mg/dL Est GFR (CKD-EPI) (>=60) BUN/Creatinine Ratio (12.00-20.00) Ratio Glucose (70-110) mg/dL POC Glucose (mg/dL) 208 H (70-110) mg/dL Hemoglobin A1c (<=6.0) % Microbiology - Last 24 Hours (Table) 04/24/24 04:00 Blood Culture Gram Stain - Preliminary Blood Blood Culture - Preliminary Molecular ID
[2024-04-25 17:36] LABS: Glucose,Whole Blood 223 mg/dL (70-110)
[2024-04-25] MEDS: methylPREDNISolone SOD SUCCI 40 MG/ML 1 ML VIAL IV SCH (18:08)
[2024-04-25 20:46] LABS: Glucose,Whole Blood 170 mg/dL (70-110)
[2024-04-25] MEDS: ACETAMINOPHEN TAB 325 MG TAB PO PRN (21:23)
--- NOTE | 2024-04-25 22:50 | P.CONS ---
History of Present Illness - Reason for Consult Consult date: 04/25/24 Bacteremia Requesting physician: Jay Caceres - Chief Complaint Shortness of breath and cough x 1 week - History of Present Illness Patient is 83-year-old female past medical history significant for diabetes mellitus hypertension hyperlipidemia atrial fibrillation COPD former smoker the patient has been brought into the hospital for evaluation of increasi ng shortness of breath in this patient symptoms has been going on for about a week before presentation the hospital patient also complaining of cough which is moderate intensity with occasional sputum production denies any hemoptysis no significant headache or URI symptoms no nausea vomiting abdominal pain or diarrhea, patient on presentation to the hospital did have a low-grade fever of 99.2 degrees for night patient was not tachycardic hypotensive she was hypoxic and is currently on 4 L nasal cannula oxygen patient did have white count of 9.4 with a left shift creatinine 0.98 liver enzymes are normal influenza RSV COVID testing was negative patient did have a chest x-ray dependent airspace consolidation consistent with multilobular pneumonia patient did have normal procalcitonin source initially done given antibiotic however the blood cultures came back positive with gram-positive for the patient was given a dose of Rocephin vancomycin added infectious disease was consulted for further management of antibiotic therapy Review of Systems Positive point and negatives has been mentioned in the HPI, complete review of systems was performed and all other systems are negative Past Medical History Past Medical History: Atrial Fibrillation, Heart Failure, COPD, Diabetes Mellitus, Hyperlipidemia, Hypertension, Memory Impairment, Pneumonia, Thyroid Disorder Additional Past Medical History / Comment(s): left shoulder fracture from fall. History of Any Multi-Drug Resistant Organisms: None Reported Past Surgical History: Appendectomy, Cholecystectomy, Coronary Bypass/CABG, Hysterectomy, Joint Replacement, Orthopedic Surgery, Tonsillectomy Additional Past Surgical History / Comment(s): carotid endartetomy, left total knee Additional Past Anesthesia/Blood Transfusion Reaction / Comm: na Past Psychological History: No Psychological Hx Reported Smoking Status: Former smoker Past Alcohol Use History: None Reported Past Drug Use History: None Reported - Past Family History Mother Family Medical History: Myocardial Infarction ([place]) Medications and Allergies Home Medications Medication Instructions Recorded Confirmed Type Albuterol Inhaler [Ventolin Hfa 1 - 2 puff INHALATION RT-Q6H PRN 04/24/24 04/24/24 History Inhaler] Apixaban [Eliquis] 2.5 mg PO BID 04/24/24 04/24/24 History Atorvastatin Calcium [Lipitor] 40 mg PO DAILY 04/24/24 04/24/24 History Ferrous Sulfate [Feosol] 325 mg PO DAILY 04/24/24 04/24/24 History Furosemide [Lasix] 40 mg PO DAILY 04/24/24 04/24/24 History Isosorbide Mononitrate ER [Imdur] 60 mg PO DAILY 04/24/24 04/24/24 History Levothyroxine Sodium [Synthroid] 137 mcg PO DAILY 04/24/24 04/24/24 History Montelukast [Singulair] 10 mg PO DAILY 04/24/24 04/24/24 History Sertraline [Zoloft] 25 mg PO DAILY 04/24/24 04/24/24 History amLODIPine [Norvasc] 5 mg PO DAILY 04/24/24 04/24/24 History carvediloL [Coreg] 6.25 mg PO BID 04/24/24 04/24/24 History glipiZIDE XL [Glucotrol XL] 2.5 mg PO DAILY 04/24/24 04/24/24 History lisinopriL [Zestril] 20 mg PO DAILY 04/24/24 04/24/24 History metFORMIN HCL 1,000 mg PO BID 04/24/24 04/24/24 History Allergies Allergy/AdvReac Type Severity Reaction Status Date / Time azithromycin [From Zithromax] AdvReac Rapid Verified 04/24/24 05:46 Heart Rate Physical Exam Vitals: Vital Signs Temp Pulse Pulse Resp BP Pulse Ox 04/25/24 09:08 84 04/25/24 08:56 80 91 L 04/25/24 07:33 97.6 F 71 16 170/89 94 L 04/25/24 01:24 98 F 78 16 169/96 93 L 04/24/24 19:40 16 04/24/24 19:32 97.6 F 64 16 137/74 92 L 04/24/24 18:49 84 04/24/24 18:36 70 04/24/24 15:35 95 04/24/24 15:26 94 04/24/24 13:13 98.5 F 77 18 149/66 94 L 04/24/24 12:06 84 04/24/24 12:00 92 L 04/24/24 11:58 83 Intake and Output 04/24/24 04/25/24 04/25/24 22:59 06:59 14:59 Intake Total 120 240 Balance 120 240 Intake: Oral 120 240 Other: Voiding Method Diaper Diaper Incontinent Incontinent # Voids 2 4 Weight 60.5 kg GENERAL DESCRIPTION: Elderly female up in the chair, no distress. No tachypnea or accessory muscle of respiration use. HEENT: Shows Pallor , no scleral icterus. Oral mucous membrane is dry. No pharyngeal erythema or thrush NECK: Trachea central, no thyromegaly. LUNGS: Unlabored breathing. Coarse breath sounds bilaterally HEART: S1, S2, regular rate and rhythm. No loud murmur ABDOMEN: Soft, no tenderness EXTREMITIES: No edema of feet. SKIN: No rash, no masses palpable. NEUROLOGICAL: The patient is awake, alert, oriented x3, mood and affect normal. Results CBC & Chem 7: 04/25/24 03:48 04/25/24 03:48 Labs: Abnormal Lab Results - Last 24 Hours (Table) 04/24/24 04/24/24 04/24/24 Range/Units 12:06 17:08 20:08 Neutrophils # (1.80-7.70) X 10*3/uL Lymphocytes # (0.90-5.00) X 10*3/uL Eosinophils # (0.04-0.35) X 10*3/uL Anion Gap (4.00-12.00) mmol/L BUN (9.0-27.0) mg/dL Est GFR (CKD-EPI) (>=60) BUN/Creatinine Ratio (12.00-20.00) Ratio Glucose (70-110) mg/dL POC Glucose (mg/dL) 268 H 209 H 241 H (70-110) mg/dL Hemoglobin A1c (<=6.0) % 04/25/24 04/25/24 04/25/24 Range/Units 03:48 03:48 03:48 Neutrophils # 8.96 H (1.80-7.70) X 10*3/uL Lymphocytes # 0.38 L (0.90-5.00) X 10*3/uL Eosinophils # 0 L (0.04-0.35) X 10*3/uL Anion Gap 15.10 H (4.00-12.00) mmol/L BUN 29.9 H (9.0-27.0) mg/dL Est GFR (CKD-EPI) 56 L (>=60) BUN/Creatinine Ratio 29.90 H (12.00-20.00) Ratio Glucose 213 H (70-110) mg/dL POC Glucose (mg/dL) (70-110) mg/dL Hemoglobin A1c 6.3 H (<=6.0) % 04/25/24 Range/Units 06:54 Neutrophils # (1.80-7.70) X 10*3/uL Lymphocytes # (0.90-5.00) X 10*3/uL Eosinophils # (0.04-0.35) X 10*3/uL Anion Gap (4.00-12.00) mmol/L BUN (9.0-27.0) mg/dL Est GFR (CKD-EPI) (>=60) BUN/Creatinine Ratio (12.00-20.00) Ratio Glucose (70-110) mg/dL POC Glucose (mg/dL) 209 H (70-110) mg/dL Hemoglobin A1c (<=6.0) % Microbiology - Last 24 Hours (Table) 04/24/24 04:00 Blood Culture Gram Stain - Preliminary Blood Blood Culture - Preliminary Molecular ID Assessment and Plan (1) Gram-positive bacteremia Current Visit: Yes Status: Acute Code(s): R78.81 - BACTEREMIA SNOMED Code(s): 265409237485 (2) Pneumonia Current Visit: Yes Status: Acute Code(s): J18.9 - PNEUMONIA, UNSPECIFIED ORGANISM SNOMED Code(s): 045347608 Plan: 1patient presented to hospital with increasing shortness of breath and cough in this patient who did have evidence of multi focal pneumonia did have a normal procalcitonin which is kind of misleading now with evidence of gram-positive bacteremia source possible pneumonia 2-blood cultures will be document clearance of bacteremia 3-we will recheck inflammatory markers check urine for Legionella antigen as well as sputum for Gram stain culture 4-vancomycin pharmacy to dose target trough of 15 while watching kidney function and Vanco trough closely We will follow on clinical condition and cultures to further adjust medication if needed Thank you for this consultation we will follow the patient along with you Dictation was produced using [employer] dictation software. please excuse any grammatical, word or spelling errors. Time with Patient: Greater than 30
[2024-04-26] MEDS: VANCOMYCIN 1,000 MG in SODIUM CHLORIDE 0.9% 250 ML IVPB SCH (05:46)
[2024-04-26 06:05] LABS: African American GFR (CKD) 56 (>60 ml/min/1.73 sqM); Anion Gap 6 mmol/L; Blood Urea Nitrogen 42 mg/dL (7-17); Calcium 8.9 mg/dL (8.4-10.2); Carbon Dioxide 30 mmol/L (22-30); Chloride 98 mmol/L (98-107); Glucose 197 mg/dL (74-99); Non-African American GFR(CKD) 49 (>60 ml/min/1.73 sqM); Potassium 3.2 mmol/L (3.5-5.1); Sodium 134 mmol/L (137-145)
[2024-04-26] MEDS: POTASSIUM CHLORIDE ER 20 MEQ TAB.ER PO STA (06:55)
[2024-04-26 07:02] LABS: Glucose,Whole Blood 226 mg/dL (70-110)
[2024-04-26] MEDS: SYMBICORT 160-4.5 MCG INHALER INHALATION SCH (08:08)
[2024-04-26 08:42] LABS: HCT 36.1 % (37.2-46.3); HGB 11.8 g/dL (12.0-15.0); MCH 29.4 pg (27.0-32.0); MCHC 32.7 g/dL (32.0-37.0); Mean Platelet Volume 10.2 FL (9.5-12.2); NRBC Per 100 WBC 0 X 10*3/uL (0.00-0.01); Platelet Count 217 X 10*3/uL (140-440); RBC 4.01 X 10*6/uL (4.10-5.20); RDW 12.9 % (11.5-14.5); WBC 9.37 X 10*3/uL (4.50-10.00)
[2024-04-26] MEDS: POTASSIUM CHLORIDE ER 20 MEQ TAB.ER PO ONE (08:54)
--- NOTE | 2024-04-26 10:03 | XR ---
EXAMINATION TYPE: XR chest 1V portable DATE OF EXAM: 04/26/2024 8:50 AM COMPARISON: Chest radiographs from 04/24/2024 CLINICAL INDICATION: Female, 83 years old with history of CHF; TECHNIQUE: XR chest 1V portable Frontal view of the chest. FINDINGS: Lungs/Pleura: There is no evidence of pleural effusion, focal consolidation, or pneumothorax. Pulmonary vascularity: Unremarkable. Heart/mediastinum: Cardiomediastinal silhouette is enlarged. Musculoskeletal: No acute osseous pathology. Midline sternotomy wires are noted. Severe degeneration changes of the shoulders. IMPRESSION: No acute cardiopulmonary disease/process. [facility], , 04/26/2024 10:00 AM
[2024-04-26 12:06] LABS: Glucose,Whole Blood 401 mg/dL (70-110)
[2024-04-26] MEDS: methylPREDNISolone SOD SUCCI 40 MG/ML 1 ML VIAL IV SCH (12:06)
--- NOTE | 2024-04-26 12:26 | P.PN ---
Subjective HISTORY OF PRESENT ILLNESS: This is a pleasant 83-year-old with past medical history significant for CAD status post CABG approximately 20 years ago, some dementia, diabetes mellitus type 2, COPD/asthma, hypertension, hyperlipidemia, persistent atrial fibrillation. She does not follow with a bonderizer. She states over last 1 month she has been having increasing shortness breath. Shortness breath occurs at rest and with exertion. She denies any chest pain or pressure. She denies any significant lower extremity edema. She has had a mild cough. No fevers or chills. Does have been persistent and not improving. She normally takes Lasix 40 mg daily at home. She was found to be in atrial fibrillation with controlled ventricular rates, she initially needed nonrebreather however currently on 4 L nasal cannula. Chest x-ray shows multifocal pneumonia. Troponin 0.016, 0.03, proBNP 4500, creatinine 0.9. She was started on IV Lasix as well as steroids and antibiotics. 04/25 Patient seen and examined. Patient states she feels fairly similar to yesterday. Remains on IV Lasix 40 mg twice a day. Creatinine stable 1.0. 04/26/2024 Patient seen and examined this morning. She is sitting up in the chair. She continues to report shortness of breath. She also reports a frequent cough. She remains on IV steroids. She has been transitioned to oral diuretics. BUN 42. Creatinine 1.05. Systolic blood pressure elevated with a reading in the [id number]. Chest x-ray negative for acute process. PHYSICAL EXAM: VITAL SIGNS: Reviewed. GENERAL: Well-developed in no acute distress. NECK: Supple. No JVD or thyromegaly LUNGS: Respirations even and unlabored. Lungs with expiratory wheezing noted HEART: Irregular rate and rhythm. S1 and S2 heard. EXTREMITIES: Normal range of motion. No clubbing or cyanosis. Peripheral pulses intact. No lower extremity edema ASSESSMENT: Acute on chronic respiratory failure, appears more pulmonary with cough and chest x-ray concerning for multifocal pneumonia Acute on chronic diastolic heart failure Pulmonary hypertension likely related to underlying pulmonary disease CAD status post CABG Persistent atrial fibrillation with controlled ventricular rates Hypertension Hyperlipidemia Diabetes mellitus type 2 Dementia PLAN: Patient has been transition to oral diuretics Continue IV steroids per pulmonary medicine Continue additional cardiac medications Patient is currently stable from a cardiac standpoint No further inpatient recommendations We will sign off. Please reconsult if needed. Nurse practitioner note has been reviewed by physician. Signing provider agrees with the documented findings, assessment, and plan of care documented by [facility] as a scribe. Objective - Vital Signs Vital signs: Vital Signs Temp 97.6 F 04/26/24 07:03 Pulse 64 04/26/24 08:19 Resp 20 04/26/24 07:03 BP 161/86 04/26/24 07:03 Pulse Ox 97 04/26/24 08:08 FiO2 Intake & Output 04/25/24 04/26/24 04/26/24 18:59 06:59 18:59 Intake Total 1740 Output Total 250 Balance 1740 -250 Weight 63.5 kg Intake: Oral 1740 Output: Urine 250 Other: Voiding Method Diaper Diaper Incontinent Incontinent # Voids 3 1 - Labs CBC & Chem 7: 04/26/24 04:44 04/26/24 04:44 Labs: Abnormal Lab Results - Last 24 Hours (Table) 04/25/24 04/25/24 04/25/24 Range/Units 12:01 17:21 20:44 RBC (4.10-5.20) X 10*6/uL Hgb (12.0-15.0) g/dL Hct (37.2-46.3) % Sodium (137-145) mmol/L Potassium (3.5-5.1) mmol/L BUN (7-17) mg/dL Creatinine (0.52-1.04) mg/dL Glucose (74-99) mg/dL POC Glucose (mg/dL) 208 H 223 H 170 H (70-110) mg/dL C-Reactive Protein (0.00-0.80) mg/dL 04/26/24 04/26/24 04/26/24 Range/Units 04:44 04:44 07:01 RBC 4.01 L (4.10-5.20) X 10*6/uL Hgb 11.8 L (12.0-15.0) g/dL Hct 36.1 L (37.2-46.3) % Sodium 134 L (137-145) mmol/L Potassium 3.2 L (3.5-5.1) mmol/L BUN 42 H (7-17) mg/dL Creatinine 1.05 H (0.52-1.04) mg/dL Glucose 197 H (74-99) mg/dL POC Glucose (mg/dL) 226 H (70-110) mg/dL C-Reactive Protein 5.30 H (0.00-0.80) mg/dL Microbiology - Last 24 Hours (Table) 04/24/24 04:00 Blood Culture Gram Stain - Preliminary Blood Blood Culture - Preliminary Staphylococcus hominis Molecular ID
--- NOTE | 2024-04-26 12:32 | P.PN ---
Subjective Progress Note Date: 04/26/24 This is an 83-year-old female patient with a history of dementia, atrial fibrillation on Eliquis, congestive heart failure, chronic obstructive pulmonary disease, diabetes mellitus, hypertension, hyperlipidemia, hypothyroidism. She was brought into the emergency room early this morning with a 2 to 3-day history of increasing shortness of breath cough and congestion. Breathing treatments at home were not helping. Her O2 saturations was in the low 80s. X-ray shows airspace consolidations consistent with multilobar pneumonia. EKG reveals atrial fibrillation. Echocardiogram reveals preserved left ventricular systolic function with ejection fraction of 65 to 70%. White count 9.4. Hemoglobin 12. 1. Platelets 171. Sodium 133. Potassium 4.0. Bicarb 26. BUN 28. Creatinine 0.98. Glucose 104. proBNP 4510. Procalcitonin negative at 0.10. Viral screen negative. She is seen today in consultation on the regular medical floor. She is currently sitting up in bed. Awake and alert. Poor historian. Family is at the bedside and provides most of the information. The patient is seen today April 25, 2024 in follow-up on the regular medical floor. She is currently sitting up in a chair at the bedside. Awake and alert in no acute distress. She is maintaining good O2 saturations in the 90s on 4 L/min per nasal cannula. She is continued on DuoNeb inhalations, Solu-Medrol. Remains on IV diuretics. Anticoagulated with Eliquis. Antibiotics in the form of vancomycin. Blood cultures positive for gram positive cocci in clusters Staphylococcus species detected. White count 9.7. Hemoglobin 12.7. Platelets 219. Sodium 136. Potassium 3.6. Bicarb 25. BUN 30. Creatinine 1.0. Glucose 213. AST 16. ALT 13. The patient is seen today April 26, 2024 in follow-up on the regular medical floor. She is awake and alert in no acute distress. She is a bit more short of breath today compared to yesterday. Maintaining good O2 saturations in the mid 90s on 4 L/min per nasal cannula. Chest x-ray showing no acute pulmonary process. Blood culture positive for Staphylococcus hominis, suspect contaminant. 0.3. Hemoglobin 11.8. Platelets 217. Sodium 134. Potassium 3.2. Bicarb 30. BUN 42. Creatinine 1.05. Glucose 197. C-reactive protein 5.30. Procalcitonin negative at 0.11. She is currently on vancomycin. Remains on DuoNeb inhalations, Symbicort, initiated on Solu-Medrol. Remains on oral diuretics. Anticoagulated with Eliquis. Objective - Vital Signs Vital signs: Vital Signs Temp 97.6 F 04/26/24 07:03 Pulse 76 04/26/24 11:39 Resp 20 04/26/24 08:35 BP 161/86 04/26/24 07:03 Pulse Ox 97 04/26/24 08:08 FiO2 Intake & Output 04/25/24 04/26/24 04/26/24 18:59 06:59 18:59 Intake Total 1740 Output Total 250 Balance 1740 -250 Weight 63.5 kg Intake: Oral 1740 Output: Urine 250 Other: Voiding Method Diaper Diaper Diaper Incontinent Incontinent Incontinent # Voids 3 1 - Exam GENERAL EXAM: Alert, 83-year-old female, resting in bed, on 4 L nasal cannula, comfortable in no apparent distress. HEAD: Normocephalic. EYES: Normal reaction of pupils, equal size. NOSE: Clear with pink turbinates. THROAT: No erythema or exudates. NECK: No masses, no JVD. CHEST: No chest wall deformity. LUNGS: Equal air entry with end expiratory wheeze, diminished. CVS: S1 and S2 normal with no audible murmur, regular rhythm. ABDOMEN: No hepatosplenomegaly, normal bowel sounds, no guarding or rigidity. SPINE: No scoliosis or deformity SKIN: No rashes CENTRAL NERVOUS SYSTEM: Tone is normal in all 4 extremities. EXTREMITIES: There is no peripheral edema. No clubbing, no cyanosis. Emy pheral pulses are intact. - Labs CBC & Chem 7: 04/26/24 04:44 04/26/24 04:44 Labs: Abnormal Lab Results - Last 24 Hours (Table) 04/25/24 04/25/24 04/26/24 Range/Units 17:21 20:44 04:44 RBC (4.10-5.20) X 10*6/uL Hgb (12.0-15.0) g/dL Hct (37.2-46.3) % Sodium 134 L (137-145) mmol/L Potassium 3.2 L (3.5-5.1) mmol/L BUN 42 H (7-17) mg/dL Creatinine 1.05 H (0.52-1.04) mg/dL Glucose 197 H (74-99) mg/dL POC Glucose (mg/dL) 223 H 170 H (70-110) mg/dL C-Reactive Protein 5.30 H (0.00-0.80) mg/dL 04/26/24 04/26/24 04/26/24 Range/Units 04:44 07:01 12:05 RBC 4.01 L (4.10-5.20) X 10*6/uL Hgb 11.8 L (12.0-15.0) g/dL Hct 36.1 L (37.2-46.3) % Sodium (137-145) mmol/L Potassium (3.5-5.1) mmol/L BUN (7-17) mg/dL Creatinine (0.52-1.04) mg/dL Glucose (74-99) mg/dL POC Glucose (mg/dL) 226 H 401 H (70-110) mg/dL C-Reactive Protein (0.00-0.80) mg/dL Microbiology - Last 24 Hours (Table) 04/24/24 04:00 Blood Culture Gram Stain - Preliminary Blood Blood Culture - Preliminary Staphylococcus hominis Molecular ID Assessment and Plan Assessment: Acute hypoxemic respiratory failure secondary to acute exacerbation of diastolic congestive heart failure. Procalcitonin negative. Viral screen negative Bacteremia secondary to Staphylococcus species, initiated on vancomycin Acute exacerbation of chronic obstructive pulmonary disease Atrial fibrillation, anticoagulated with Eliquis Hypertension Hypothyroidism Diabetes mellitus Hyperlipidemia Dementia Plan: The patient was seen and evaluated Chest x-ray, labs and medications reviewed Continue DuoNeb inhalations, Singulair, Solu-Medrol Continue diuretics Titrate down the FiO2 as tolerated We will continue to follow I have personally seen and examined the patient, performed the documentation and the assessment and plan as written. Number of minutes spent on the visit: 10 Dictation was produced using [email or web address] dictation software. Please excuse any grammatical, word or spelling errors.
[2024-04-26] MEDS: FUROSEMIDE 40 MG TAB PO SCH (15:58)
--- NOTE | 2024-04-26 16:42 | P.PN ---
Subjective Progress Note Date: 04/26/24 History of present illness; Patient is a 83-year-old female with CHF, COPD, diabetes mellitus, hypertension, hyperlipidemia, history of CABG, A-fib on Eliquis presents for shortness of breath. Patient states shortness of breath began 2 weeks ago and has gradually worsened. She also has 1 week of cough which has worsened in the last 4 days. It is reported by son in the room that her oxygen saturation was in the low 80s percent at home. She does not use home oxygen. She is compliant with her home medications. Currently she has no other symptoms and reports absence of fever, chills, weight loss, chest pain, diaphoresis, nausea, vomiting, constipation, diarrhea, abdominal pain, weakness, myalgia, dizziness, headache, and dysuria. EKG done in the ER independently interpreted showed A-fib heart rate of 66, no ST segment elevation or depression seen, no T-wave inversions seen. Chest x-ray done independently interpreted in the ER showed suspicious for multilobar pneumonia and cardiomegaly Progress note April 25, 2024 Patient seen and examined at bedside. No events overnight but patient does states that she was dizzy this morning. She is on 4 L nasal cannula. Blood cultures resulted in Staphylococcus and patient was subsequently started on vancomycin. She continues to receive IV Lasix twice daily and bronchodilator breathing treatments. Pulmonology and cardiology notes reviewed. Labs WBC 9.7, hemoglobin 12.7, sodium 136, potassium 3.6, bicarb 24.9, BUN 29.9, creatinine 1.0, glucose 213 April 26, 2024 Patient seen and examined at bedside. No events overnight, she does complain of continuous cough. She is on 4 L nasal cannula. She continues on vancomycin for bacteremia. Repeat blood cultures. ID following. She is transition to Lasix p.o. twice daily and bronchodilator breathing treatments. She was started on IV Solu-Medrol. Pulmonology and cardiology notes reviewed. Labs WBC 9.37, hemoglobin 11.8, sodium 134, potassium 3.2, bicarb 30, BUN 42, creatinine 1.05, glucose ranging 197-401, CRP 5.3, urine Legionella negative. REVIEW OF SYSTEMS: Pertinent positives and negatives noted in HPI. PHYSICAL EXAMINATION: Vitals reviewed GENERAL: No acute distress. Well developed, well nourished. HEENT: Pupils are round and equally reacting to light. EOMI. No scleral icterus. Normocephalic, atraumatic. CARDIOVASCULAR: S1 and S2 present. No murmurs, rubs, or gallops. PULMONARY: Scattered rhonchi bilaterally. mild wheezing, no crackles. ABDOMEN: Soft, nontender, nondistended, normoactive bowel sounds. No palpable organomegaly. MUSCULOSKELETAL: No apparent joint swelling and deformities. EXTREMITIES: No apparent cyanosis, clubbing, or pedal edema. NEUROLOGICAL: The patient is alert and oriented x3, Gross neurological examination did not reveal any focal deficits SKIN: No apparent rashes. Assessment and plan Patient is a 83-year-old female with COPD, diabetes mellitus, hypertension, hyperlipidemia, history of CABG, A-fib on Eliquis presents for shortness of breath. # Acute hypoxic respiratory failure due to COPD exacerbation #A-fib Initial VBG pH 7.37, pCO2 52 Initial WBC 9.4 proBNP 4510, baseline 08/2019 is 850 Procalcitonin 0.10 Continue breathing treatment DuoNeb, Solu-Medrol Began on IV Solu-Medrol 40 mg every 6 hours Discontinued levofloxacin and ceftriaxone Transition to Lasix 40 mg p.o. twice daily - Resume home Eliquis, Coreg Continuous cardiac monitoring Continue O2, maintain 9296% saturation Pulmonology following #Bacteremia Blood culture with Staphylococcus, repeat blood culture Continue vancomycin 1000 mg daily ID following #Hyperbilirubinemia Initial total bilirubin 1.6 => 0.9 Monitor CMP #Diabetes mellitus, type 2 Holding oral medications Begin Accu-Cheks and low-dose sliding scale, monitor for hypoglycemia HbA1c 6.3 Chronic Medical Conditions # Essential hypertension - Resume home Lisinopril, amlodipine #Hyperlidemia - Resume home Atorvastatin #Hypothyroidism - Resume home Synthroid #Anxiety/Depression - Resume home Sertraline F: P.o. E: Replete as needed N: Heart healthy diet DVT ppx: Resume Eliquis 2.5 twice daily Code status: Full code Anticipated discharge place: Home Anticipated discharge time: 2 to 3 days Dictation was produced using [employer] dictation software. Please excuse any grammatical, word or spelling errors. Dr. Nicki MD I have performed a history and physical examination and medical decision making of this patient, discussed the same with the the resident, and agree with the assessment and plan as written. I performed brief physical exam. Objective - Vital Signs Vital signs: Vital Signs Temp 98.7 F 04/26/24 13:12 Pulse 80 04/26/24 15:49 Resp 24 04/26/24 13:12 BP 132/70 04/26/24 13:12 Pulse Ox 92 L 04/26/24 13:12 FiO2 Intake & Output 04/25/24 04/26/24 04/26/24 18:59 06:59 18:59 Intake Total 1740 Output Total 250 Balance 1740 -250 Weight 63.5 kg Intake: Oral 1740 Output: Urine 250 Other: Voiding Method Diaper Diaper Diaper Incontinent Incontinent Incontinent # Voids 3 1 1 - Labs CBC & Chem 7: 04/26/24 04:44 04/26/24 04:44 Labs: Abnormal Lab Results - Last 24 Hours (Table) 04/25/24 04/25/24 04/26/24 Range/Units 17:21 20:44 04:44 RBC (4.10-5.20) X 10*6/uL Hgb (12.0-15.0) g/dL Hct (37.2-46.3) % Sodium 134 L (137-145) mmol/L Potassium 3.2 L (3.5-5.1) mmol/L BUN 42 H (7-17) mg/dL Creatinine 1.05 H (0.52-1.04) mg/dL Glucose 197 H (74-99) mg/dL POC Glucose (mg/dL) 223 H 170 H (70-110) mg/dL C-Reactive Protein 5.30 H (0.00-0.80) mg/dL 04/26/24 04/26/24 04/26/24 Range/Units 04:44 07:01 12:05 RBC 4.01 L (4.10-5.20) X 10*6/uL Hgb 11.8 L (12.0-15.0) g/dL Hct 36.1 L (37.2-46.3) % Sodium (137-145) mmol/L Potassium (3.5-5.1) mmol/L BUN (7-17) mg/dL Creatinine (0.52-1.04) mg/dL Glucose (74-99) mg/dL POC Glucose (mg/dL) 226 H 401 H (70-110) mg/dL C-Reactive Protein (0.00-0.80) mg/dL Microbiology - Last 24 Hours (Table) 04/24/24 04:00 Blood Culture Gram Stain - Preliminary Blood Blood Culture - Preliminary Staphylococcus hominis Molecular ID
[2024-04-26 17:09] LABS: Glucose,Whole Blood 224 mg/dL (70-110)
[2024-04-26 20:16] LABS: Glucose,Whole Blood 207 mg/dL (70-110)
[2024-04-26] MEDS: INSULIN DETEMIR (LEVEMIR) 100 UNIT/ML SYR SQ SCH (20:47)
--- NOTE | 2024-04-26 23:02 | P.PN ---
Subjective Progress Note Date: 04/26/24 Principal diagnosis: Reason for follow-up is a positive blood culture Patient is 83-year-old female past medical history significant for diabetes mellitus hypertension hyperlipidemia atrial fibrillation COPD former smoker the patient has been brought into the hospital for evaluation of increasing shortness of breath patient also have a cough chest x-ray did shows airspace consolidation considering the multifocal pneumonia blood culture positive for gram-positive prompted this consultation. On today's evaluation that is 04/26/2024,the patient denies any fever or any chills, patient is complaining of slightly more shortness of breath she also have a cough and bring up some sputum no chest pain no nausea no vomiting no abdominal pain or diarrhea patient is currently on 4 L nasal cannula oxygen. Patient did have a white count of 9.37, creatinine 1.0 5 repeat procalcitonin is also 0.11 chest x-ray no acute cardiopulmonary disease process Objective - Vital Signs Vital signs: Vital Signs Temp 97.6 F 04/26/24 07:03 Pulse 76 04/26/24 11:39 Resp 20 04/26/24 08:35 BP 161/86 04/26/24 07:03 Pulse Ox 97 04/26/24 08:08 FiO2 Intake & Output 04/25/24 04/26/24 04/26/24 18:59 06:59 18:59 Intake Total 1740 Output Total 250 Balance 1740 -250 Weight 63.5 kg Intake: Oral 1740 Output: Urine 250 Other: Voiding Method Diaper Diaper Diaper Incontinent Incontinent Incontinent # Voids 3 1 1 - Exam GENERAL DESCRIPTION: An elderly female up in the chair in no distress RESPIRATORY SYSTEM: Unlabored breathing , coarse breath sounds bilaterally HEART: S1 S2 regular rate and rhythm , ABDOMEN: Soft , no tenderness EXTREMITIES: No edema feet - Labs CBC & Chem 7: 04/26/24 04:44 04/26/24 04:44 Labs: Abnormal Lab Results - Last 24 Hours (Table) 04/25/24 04/25/24 04/26/24 Range/Units 17:21 20:44 04:44 RBC (4.10-5.20) X 10*6/uL Hgb (12.0-15.0) g/dL Hct (37.2-46.3) % Sodium 134 L (137-145) mmol/L Potassium 3.2 L (3.5-5.1) mmol/L BUN 42 H (7-17) mg/dL Creatinine 1.05 H (0.52-1.04) mg/dL Glucose 197 H (74-99) mg/dL POC Glucose (mg/dL) 223 H 170 H (70-110) mg/dL C-Reactive Protein 5.30 H (0.00-0.80) mg/dL 04/26/24 04/26/24 04/26/24 Range/Units 04:44 07:01 12:05 RBC 4.01 L (4.10-5.20) X 10*6/uL Hgb 11.8 L (12.0-15.0) g/dL Hct 36.1 L (37.2-46.3) % Sodium (137-145) mmol/L Potassium (3.5-5.1) mmol/L BUN (7-17) mg/dL Creatinine (0.52-1.04) mg/dL Glucose (74-99) mg/dL POC Glucose (mg/dL) 226 H 401 H (70-110) mg/dL C-Reactive Protein (0.00-0.80) mg/dL Microbiology - Last 24 Hours (Table) 04/24/24 04:00 Blood Culture Gram Stain - Preliminary Blood Blood Culture - Preliminary Staphylococcus hominis Molecular ID Assessment and Plan (1) Gram-positive bacteremia Current Visit: Yes Status: Acute Code(s): R78.81 - BACTEREMIA SNOMED Code(s): 160701822560 (2) Pneumonia Current Visit: Yes Status: Acute Code(s): J18.9 - PNEUMONIA, UNSPECIFIED ORGANISM SNOMED Code(s): 947851916 Plan: 1patient presented to hospital with increasing shortness of breath and cough in this patient who did have evidence of multi focal pneumonia did have a normal procalcitonin, did have a positive blood culture with Staphylococcus hominis which is more likely skin contamination has not a common etiology for pneumonia, blood cultures will be document clearance of bacteremia 2vancomycin will be discontinued 3patient possibly have COPD exacerbation with the purulent tracheobronchitis sputum cultures pending will empirically add Rocephin Dictation was produced using [employer] dictation software. please excuse any grammatical, word or spelling errors. Time with Patient: Less than 30
[2024-04-27 07:26] LABS: Glucose,Whole Blood 216 mg/dL (70-110)
--- NOTE | 2024-04-27 08:29 | CDI ---
Documentation Clarification Form Date: 04/27/2024 07:49:57 AM From: Winifred Dejesus RN CCDS Phone: [phone] Admit Date: 04/24/2024 02:37:00 AM Patient Name: Lauren Woods Visit Number: [id number] Discharge Date: ATTENTION: The Clinical Documentation Specialists (CDI) and [facility] Coding Staff appreciate your assistance in clarifying documentation. Please respond to the clarification below the line at the bottom and electronically sign. The CDI & [facility] Coding staff will review the response and follow-up if needed. Please note: Queries are made part of the Legal Health Record. If you have any questions, please contact the author of this message via ITS. Doctor: Nicki: A Bilateral buttock pressure ulcers stage 1 is documented by Nursing in the Pressure Injury Assessment in [facility]. Based on this information and the findings below, is there an additional diagnosis that is clinically appropriate for this patient? History/Risk Factors: 83 year old female presents to the ED for shortness of breath, cough and low oxygen saturations. Medical History: CHF, COPD, Afib, DM2, HTN and Hypothyroidism. 12/ HP. Clinical Indicators: Location: Bilateral Buttock Wound description: Emy Wound Color Erythema, Emy Wound No abnormality (patient warm) Treatment: Foam with border applied foam dressing. Turn 2QH while in bed. Is there an additional diagnosis that is clinically appropriate for this patient? [ x ] Bilateral Buttock Pressure Ulcer Stage 1 [ ] Other condition, please specify [ ] Unable to determine Clinical Definitions: Stage 1 Pressure Ulcer: intact skin, non-blanching redness of local area Stage 2 Pressure Ulcer: Partial thickness, loss of dermis, pink wound bed Stage 3 Pressure Ulcer: Full thickness tissue loss Stage 4 Pressure Ulcer: Full thickness tissue loss with exposed bone, tendon, or muscle. Unstageable pressure ulcer: Full thickness tissue loss in which the base of the ulcer is covered by slough (yellow, russell, wor[place], green or brown) and/or eschar (russell, brown or black) in the wound bed. (Template Last Revised: July 2020) MTDD
[2024-04-27 09:03] LABS: HCT 35.9 % (37.2-46.3); HGB 11.5 g/dL (12.0-15.0); MCH 29.1 pg (27.0-32.0); MCV 90.9 FL (80.0-97.0); Mean Platelet Volume 10.1 FL (9.5-12.2); NRBC Per 100 WBC 0 X 10*3/uL (0.00-0.01); Platelet Count 218 X 10*3/uL (140-440); RBC 3.95 X 10*6/uL (4.10-5.20); RDW 12.8 % (11.5-14.5); WBC 9.23 X 10*3/uL (4.50-10.00)
[2024-04-27 09:20] LABS: Blood Urea Nitrogen 35.2 mg/dL (9.0-27.0); Calcium 8.9 mg/dL (8.7-10.3); Carbon Dioxide 28.7 mmol/L (21.6-31.8); Chloride 99 mmol/L (96-109); Glucose 213 mg/dL (70-110); Potassium 4.1 mmol/L (3.5-5.5); Sodium 137 mmol/L (135-145)
[2024-04-27 12:19] LABS: Glucose,Whole Blood 255 mg/dL (70-110)
--- NOTE | 2024-04-27 14:33 | P.PN ---
Subjective Progress Note Date: 04/27/24 This is an 83-year-old female patient with a history of dementia, atrial fibrillation on Eliquis, congestive heart failure, chronic obstructive pulmonary disease, diabetes mellitus, hypertension, hyperlipidemia, hypothyroidism. She was brought into the emergency room early this morning with a 2 to 3-day history of increasing shortness of breath cough and congestion. Breathing treatments at home were not helping. Her O2 saturations was in the low 80s. X-ray shows airspace consolidations consistent with multilobar pneumonia. EKG reveals atrial fibrillation. Echocardiogram reveals preserved left ventricular systolic function with ejection fraction of 65 to 70%. White count 9.4. Hemoglobin 12. 1. Platelets 171. Sodium 133. Potassium 4.0. Bicarb 26. BUN 28. Creatinine 0.98. Glucose 104. proBNP 4510. Procalcitonin negative at 0.10. Viral screen negative. She is seen today in consultation on the regular medical floor. She is currently sitting up in bed. Awake and alert. Poor historian. Family is at the bedside and provides most of the information. The patient is seen today April 25, 2024 in follow-up on the regular medical floor. She is currently sitting up in a chair at the bedside. Awake and alert in no acute distress. She is maintaining good O2 saturations in the 90s on 4 L/min per nasal cannula. She is continued on DuoNeb inhalations, Solu-Medrol. Remains on IV diuretics. Anticoagulated with Eliquis. Antibiotics in the form of vancomycin. Blood cultures positive for gram positive cocci in clusters Staphylococcus species detected. White count 9.7. Hemoglobin 12.7. Platelets 219. Sodium 136. Potassium 3.6. Bicarb 25. BUN 30. Creatinine 1.0. Glucose 213. AST 16. ALT 13. The patient is seen today April 26, 2024 in follow-up on the regular medical floor. She is awake and alert in no acute distress. She is a bit more short of breath today compared to yesterday. Maintaining good O2 saturations in the mid 90s on 4 L/min per nasal cannula. Chest x-ray showing no acute pulmonary process. Blood culture positive for Staphylococcus hominis, suspect contaminant. 0.3. Hemoglobin 11.8. Platelets 217. Sodium 134. Potassium 3.2. Bicarb 30. BUN 42. Creatinine 1.05. Glucose 197. C-reactive protein 5.30. Procalcitonin negative at 0.11. She is currently on vancomycin. Remains on DuoNeb inhalations, Symbicort, initiated on Solu-Medrol. Remains on oral diuretics. Anticoagulated with Eliquis. The patient is seen today April 27, 2024 in follow-up on the regular medical floor. She is currently sitting up in a chair at the bedside. Awake and alert in no acute distress. Breathing easier today compared to yesterday. Still with a loose congested cough. Still with a faint wheeze. She is maintaining O2 saturations in the 90s on 4 L/min per nasal cannula. Follow-up blood culture feeling no growth to date. White count 9.2. Hemoglobin 11.5. Platelets 218. Sodium 137. Potassium 4.1. Bicarb 29. BUN 35. Creatinine 1.0. Glucose 213. Is on DuoNeb and elations, Symbicort, Solu-Medrol and Singulair. Remains on oral diuretics. Antibiotics in the form of ceftriaxone. Anticoagulated with Eliquis. Objective - Vital Signs Vital signs: Vital Signs Temp 97.6 F 04/27/24 13:04 Pulse 72 04/27/24 13:04 Resp 16 04/27/24 13:04 BP 172/68 04/27/24 13:04 Pulse Ox 94 L 04/27/24 13:04 FiO2 Intake & Output 04/26/24 04/27/24 04/27/24 18:59 06:59 18:59 Intake Total 1510 240 Balance 1510 240 Weight 94.3 kg Intake: Oral 1510 240 Other: Voiding Method Diaper Diaper Toilet Incontinent Incontinent Diaper # Voids 1 2 - Exam GENERAL EXAM: Alert, pleasant 83-year-old female, up in a chair, on 4 L nasal cannula, comfortable in no apparent distress. HEAD: Normocephalic. EYES: Normal reaction of pupils, equal size. NOSE: Clear with pink turbinates. THROAT: No erythema or exudates. NECK: No masses, no JVD. CHEST: No chest wall deformity. LUNGS: Equal air entry with end expiratory wheeze, diminished. CVS: S1 and S2 normal with no audible murmur, regular rhythm. ABDOMEN: No hepatosplenomegaly, normal bowel sounds, no guarding or rigidity. SPINE: No scoliosis or deformity SKIN: No rashes CENTRAL NERVOUS SYSTEM: Tone is normal in all 4 extremities. EXTREMITIES: There is no peripheral edema. No clubbing, no cyanosis. Peripheral pulses are intact. - Labs CBC & Chem 7: 04/27/24 04:20 04/27/24 04:20 Labs: Abnormal Lab Results - Last 24 Hours (Table) 04/26/24 04/26/24 04/27/24 Range/Units 17:08 20:14 04:20 RBC 3.95 L (4.10-5.20) X 10*6/uL Hgb 11.5 L (12.0-15.0) g/dL Hct 35.9 L (37.2-46.3) % BUN (9.0-27.0) mg/dL Est GFR (CKD-EPI) (>=60) BUN/Creatinine Ratio (12.00-20.00) Ratio Glucose (70-110) mg/dL POC Glucose (mg/dL) 224 H 207 H (70-110) mg/dL 04/27/24 04/27/24 04/27/24 Range/Units 04:20 07:25 12:18 RBC (4.10-5.20) X 10*6/uL Hgb (12.0-15.0) g/dL Hct (37.2-46.3) % BUN 35.2 H (9.0-27.0) mg/dL Est GFR (CKD-EPI) 56 L (>=60) BUN/Creatinine Ratio 35.20 H (12.00-20.00) Ratio Glucose 213 H (70-110) mg/dL POC Glucose (mg/dL) 216 H 255 H (70-110) mg/dL Microbiology - Last 24 Hours (Table) 04/24/24 04:00 Blood Culture Gram Stain - Final Blood Blood Culture - Final Staphylococcus hominis Molecular ID 04/25/24 11:10 Blood Culture - Preliminary Blood Assessment and Plan Assessment: Acute hypoxemic respiratory failure secondary to acute exacerbation of diastolic congestive heart failure. Procalcitonin negative. Viral screen negative Bacteremia secondary to Staphylococcus species, initiated on vancomycin, follow- up cultures revealing no growth Acute exacerbation of chronic obstructive pulmonary disease Atrial fibrillation, anticoagulated with Eliquis Hypertension Hypothyroidism Diabetes mellitus Hyperlipidemia Dementia Plan: The patient was seen and evaluated Labs and medications reviewed Continue bronchodilators, steroids Titrate down the FiO2 as tolerated Increase her activity as tolerated We will continue to follow I have personally seen and examined the patient, performed the documentation and the assessment and plan as written. Number of minutes spent on the visit: 10 Dictation was produced using [employer] dictation software. Please excuse any grammatical, word or spelling errors.
--- NOTE | 2024-04-27 15:48 | P.PN ---
Subjective Progress Note Date: 04/27/24 Principal diagnosis: Reason for follow-up is a positive blood culture Patient is 83-year-old female past medical history significant for diabetes mellitus hypertension hyperlipidemia atrial fibrillation COPD former smoker the patient has been brought into the hospital for evaluation of increasing shortness of breath patient also have a cough chest x-ray did shows airspace consolidation considering the multifocal pneumonia blood culture positive for gram-positive prompted this consultation. On today's evaluation that is 04/27/2024,the patient remains to be afebrile, patient is on r 2 L nasal cannula supplemental oxygen and mention breathing slightly comfortably the patient could have a cough no significant sputum production no nausea vomiting no abdominal pain or diarrhea. Patient white count is 9.23, creat is 1.0 blood culture repeat negative Objective - Vital Signs Vital signs: Vital Signs Temp 97.6 F 04/27/24 13:04 Pulse 70 04/27/24 15:32 Resp 16 04/27/24 13:04 BP 172/68 04/27/24 13:04 Pulse Ox 94 L 04/27/24 13:04 FiO2 Intake & Output 04/26/24 04/27/24 04/27/24 18:59 06:59 18:59 Intake Total 1510 1320 Balance 1510 1320 Weight 94.3 kg Intake: Oral 1510 1320 Other: Voiding Method Diaper Diaper Toilet Incontinent Incontinent Diaper # Voids 1 2 6 # Bowel Movements 1 - Exam GENERAL DESCRIPTION: An elderly female up in the chair in no distress RESPIRATORY SYSTEM: Unlabored breathing , coarse breath sounds bilaterally HEART: S1 S2 regular rate and rhythm , ABDOMEN: Soft , no tenderness EXTREMITIES: No edema feet - Labs CBC & Chem 7: 04/27/24 04:20 04/27/24 04:20 Labs: Abnormal Lab Results - Last 24 Hours (Table) 04/26/24 04/26/24 04/27/24 Range/Units 17:08 20:14 04:20 RBC 3.95 L (4.10-5.20) X 10*6/uL Hgb 11.5 L (12.0-15.0) g/dL Hct 35.9 L (37.2-46.3) % BUN (9.0-27.0) mg/dL Est GFR (CKD-EPI) (>=60) BUN/Creatinine Ratio (12.00-20.00) Ratio Glucose (70-110) mg/dL POC Glucose (mg/dL) 224 H 207 H (70-110) mg/dL 04/27/24 04/27/24 04/27/24 Range/Units 04:20 07:25 12:18 RBC (4.10-5.20) X 10*6/uL Hgb (12.0-15.0) g/dL Hct (37.2-46.3) % BUN 35.2 H (9.0-27.0) mg/dL Est GFR (CKD-EPI) 56 L (>=60) BUN/Creatinine Ratio 35.20 H (12.00-20.00) Ratio Glucose 213 H (70-110) mg/dL POC Glucose (mg/dL) 216 H 255 H (70-110) mg/dL Microbiology - Last 24 Hours (Table) 04/24/24 04:00 Blood Culture Gram Stain - Final Blood Blood Culture - Final Staphylococcus hominis Molecular ID 04/25/24 11:10 Blood Culture - Preliminary Blood Assessment and Plan (1) Gram-positive bacteremia Current Visit: Yes Status: Acute Code(s): R78.81 - BACTEREMIA SNOMED Code(s): 973624196374 (2) Pneumonia Current Visit: Yes Status: Acute Code(s): J18.9 - PNEUMONIA, UNSPECIFIED ORGANISM SNOMED Code(s): 500691787 Plan: 1patient presented to hospital with increasing shortness of breath and cough in this patient who did have evidence of multi focal pneumonia did have a normal procalcitonin, did have a positive blood culture with Staphylococcus hominis which is more likely skin contamination has not a common etiology for pneumonia, blood cultures will be document clearance of bacteremia, vancomycin has been discontinued 2patient possibly have COPD exacerbation with the purulent tracheobronchitis sputum cultures pending will be treated with Rocephin while waiting for the culture to finalize Dictation was produced using [employer] dictation software. please excuse any grammatical, word or spelling errors. Time with Patient: Less than 30
--- NOTE | 2024-04-27 17:01 | P.PN ---
Subjective Progress Note Date: 04/27/24 History of present illness; Patient is a 83-year-old female with CHF, COPD, diabetes mellitus, hypertension, hyperlipidemia, history of CABG, A-fib on Eliquis presents for shortness of breath. Patient states shortness of breath began 2 weeks ago and has gradually worsened. She also has 1 week of cough which has worsened in the last 4 days. It is reported by son in the room that her oxygen saturation was in the low 80s percent at home. She does not use home oxygen. She is compliant with her home medications. Currently she has no other symptoms and reports absence of fever, chills, weight loss, chest pain, diaphoresis, nausea, vomiting, constipation, diarrhea, abdominal pain, weakness, myalgia, dizziness, headache, and dysuria. EKG done in the ER independently interpreted showed A-fib heart rate of 66, no ST segment elevation or depression seen, no T-wave inversions seen. Chest x-ray done independently interpreted in the ER showed suspicious for multilobar pneumonia and cardiomegaly Progress note April 25, 2024 Patient seen and examined at bedside. No events overnight but patient does states that she was dizzy this morning. She is on 4 L nasal cannula. Blood cultures resulted in Staphylococcus and patient was subsequently started on vancomycin. She continues to receive IV Lasix twice daily and bronchodilator breathing treatments. Pulmonology and cardiology notes reviewed. Labs WBC 9.7, hemoglobin 12.7, sodium 136, potassium 3.6, bicarb 24.9, BUN 29.9, creatinine 1.0, glucose 213 April 26, 2024 Patient seen and examined at bedside. No events overnight, she does complain of continuous cough. She is on 4 L nasal cannula. She continues on vancomycin for bacteremia. Repeat blood cultures. ID following. She is transition to Lasix p.o. twice daily and bronchodilator breathing treatments. She was started on IV Solu-Medrol. Pulmonology and cardiology notes reviewed. Labs WBC 9.37, hemoglobin 11.8, sodium 134, potassium 3.2, bicarb 30, BUN 42, creatinine 1.05, glucose ranging 197-401, CRP 5.3, urine Legionella negative. April 27, 2024 Patient seen and examined at bedside. No events overnight. She continues to have cough with sputum production. She is on 2 L nasal cannula. Vancomycin was discontinued in favor of ceftriaxone. Repeat blood cultures with no growth as of yet. ID following. She remains on Lasix p.o. twice daily and bronchodilator breathing treatments. She was started on IV Solu-Medrol. Pulmonology and cardiology notes reviewed. Labs WBC 9.23, hemoglobin 11.5, sodium 137, potassium 4.1, bicarb 28.7, BUN 35.2, creatinine 1.0, glucose 213. ID and pulmonology notes reviewed. REVIEW OF SYSTEMS: Pertinent positives and negatives noted in HPI. PHYSICAL EXAMINATION: Vitals reviewed GENERAL: No acute distress. Well developed, well nourished. HEENT: Pupils are round and equally reacting to light. EOMI. No scleral icterus. Normocephalic, atraumatic. CARDIOVASCULAR: S1 and S2 present. No murmurs, rubs, or gallops. PULMONARY: Scattered rhonchi bilaterally. no wheezing, no crackles. ABDOMEN: Soft, nontender, nondistended, normoactive bowel sounds. No palpable organomegaly. MUSCULOSKELETAL: No apparent joint swelling and deformities. EXTREMITIES: No apparent cyanosis, clubbing, or pedal edema. NEUROLOGICAL: The patient is alert and oriented x3, Gross neurological examination did not reveal any focal deficits SKIN: No apparent rashes. Assessment and plan Patient is a 83-year-old female with COPD, diabetes mellitus, hypertension, hyperlipidemia, history of CABG, A-fib on Eliquis presents for shortness of breath. # Acute hypoxic respiratory failure due to COPD exacerbation #A-fib Initial VBG pH 7.37, pCO2 52 Initial WBC 9.4 proBNP 4510, baseline 08/2019 is 850 Procalcitonin 0.10 Continue breathing treatment DuoNeb, Solu-Medrol Continue on IV Solu-Medrol 40 mg every 6 hours Sputum culture pending Discontinued levofloxacin and ceftriaxone Continue to Lasix 40 mg p.o. daily - Resume home Eliquis, Coreg Continuous cardiac monitoring No home oxygen, attempt to wean off O2 Pulmonology following #Bacteremia Blood culture with Staphylococcus hominis, likely contaminant, repeat blood culture with no growth Discontinue vancomycin Begin Rocephin ID following #Bilateral buttock pressure ulcer stage I Monitor for progression #Hyperbilirubinemia Initial total bilirubin 1.6 => 0.9 Monitor CMP #Diabetes mellitus, type 2 Holding oral medications Begin Accu-Cheks and low-dose sliding scale, monitor for hypoglycemia Increase basal dose Levemir to 10 units HbA1c 6.3 Chronic Medical Conditions # Essential hypertension - Resume home Lisinopril, amlodipine #Hyperlidemia - Resume home Atorvastatin #Hypothyroidism - Resume home Synthroid #Anxiety/Depression - Resume home Sertraline F: P.o. E: Replete as needed N: Consistent carb diet DVT ppx: Resume Eliquis 2.5 twice daily Code status: Full code Anticipated discharge place: Home Anticipated discharge time: 2 to 3 days Dictation was produced using [employer] dictation software. Please excuse any grammatical, word or spelling errors. Dr. Nicki MD I have performed a history and physical examination and medical decision making of this patient, discussed the same with the the resident, and agree with the assessment and plan as written. I performed brief physical exam. Objective - Vital Signs Vital signs: Vital Signs Temp 97.6 F 04/27/24 13:04 Pulse 70 04/27/24 15:32 Resp 16 04/27/24 13:04 BP 172/68 04/27/24 13:04 Pulse Ox 94 L 04/27/24 13:04 FiO2 Intake & Output 04/26/24 04/27/24 04/27/24 18:59 06:59 18:59 Intake Total 1510 1320 Balance 1510 1320 Weight 94.3 kg Intake: Oral 1510 1320 Other: Voiding Method Diaper Diaper Toilet Incontinent Incontinent Diaper # Voids 1 2 6 # Bowel Movements 1 - Labs CBC & Chem 7: 04/27/24 04:20 04/27/24 04:20 Labs: Abnormal Lab Results - Last 24 Hours (Table) 04/26/24 04/26/24 04/27/24 Range/Units 17:08 20:14 04:20 RBC 3.95 L (4.10-5.20) X 10*6/uL Hgb 11.5 L (12.0-15.0) g/dL Hct 35.9 L (37.2-46.3) % BUN (9.0-27.0) mg/dL Est GFR (CKD-EPI) (>=60) BUN/Creatinine Ratio (12.00-20.00) Ratio Glucose (70-110) mg/dL POC Glucose (mg/dL) 224 H 207 H (70-110) mg/dL 04/27/24 04/27/24 04/27/24 Range/Units 04:20 07:25 12:18 RBC (4.10-5.20) X 10*6/uL Hgb (12.0-15.0) g/dL Hct (37.2-46.3) % BUN 35.2 H (9.0-27.0) mg/dL Est GFR (CKD-EPI) 56 L (>=60) BUN/Creatinine Ratio 35.20 H (12.00-20.00) Ratio Glucose 213 H (70-110) mg/dL POC Glucose (mg/dL) 216 H 255 H (70-110) mg/dL Microbiology - Last 24 Hours (Table) 04/24/24 04:00 Blood Culture Gram Stain - Final Blood Blood Culture - Final Staphylococcus hominis Molecular ID 04/25/24 11:10 Blood Culture - Preliminary Blood
[2024-04-27 17:08] LABS: Glucose,Whole Blood 338 mg/dL (70-110)
[2024-04-27] MEDS: POTASSIUM CHLORIDE ER 20 MEQ TAB.ER PO STA (18:09)
[2024-04-27 20:03] LABS: Glucose,Whole Blood 407 mg/dL (70-110)
[2024-04-27] MEDS: INSULIN DETEMIR (LEVEMIR) 100 UNIT/ML SYR SQ SCH (20:57)
[2024-04-27] MEDS ORDERED: INSULIN DETEMIR (LEVEMIR) 100 UNIT/ML SYR SQ SCH (21:00)
[2024-04-28 07:28] LABS: Glucose,Whole Blood 220 mg/dL (70-110)
[2024-04-28 07:31] VITALS: RESP 17
[2024-04-28 08:43] LABS: HCT 37.4 % (37.2-46.3); HGB 12.2 g/dL (12.0-15.0); MCH 29.2 pg (27.0-32.0); MCHC 32.6 g/dL (32.0-37.0); MCV 89.5 FL (80.0-97.0); Mean Platelet Volume 9.9 FL (9.5-12.2); NRBC Per 100 WBC 0 X 10*3/uL (0.00-0.01); Platelet Count 240 X 10*3/uL (140-440); RBC 4.18 X 10*6/uL (4.10-5.20); RDW 12.5 % (11.5-14.5); WBC 7.82 X 10*3/uL (4.50-10.00)
[2024-04-28] MEDS: FUROSEMIDE 40 MG TAB PO SCH (08:53)
[2024-04-28] MEDS: predniSONE 20 MG TAB PO SCH (08:53)
[2024-04-28 09:00] LABS: Blood Urea Nitrogen 34.1 mg/dL (9.0-27.0); Calcium 9.2 mg/dL (8.7-10.3); Carbon Dioxide 26.9 mmol/L (21.6-31.8); Chloride 99 mmol/L (96-109); Glucose 207 mg/dL (70-110); Sodium 137 mmol/L (135-145)
[2024-04-28 12:18] LABS: Glucose,Whole Blood 261 mg/dL (70-110)
--- NOTE | 2024-04-28 12:44 | P.PN ---
Subjective Progress Note Date: 04/28/24 Principal diagnosis: Reason for follow-up is a positive blood culture Patient is 83-year-old female past medical history significant for diabetes mellitus hypertension hyperlipidemia atrial fibrillation COPD former smoker the patient has been brought into the hospital for evaluation of increasing shortness of breath patient also have a cough chest x-ray did shows airspace consolidation considering the multifocal pneumonia blood culture positive for gram-positive prompted this consultation. On today's evaluation that is 04/28/2024, the patient continues to be afebrile, the patient is on 2 L current oxygen and breathing comfortably, the Pt slightly sleepy today and in no distress no vomiting or diarrhea has been reported. Patient did have a white count of 7.82, creatinine is 1.0 repeat blood culture has been negative Objective - Vital Signs Vital signs: Vital Signs Temp 98.1 F 04/28/24 07:22 Pulse 74 04/28/24 12:10 Resp 17 04/28/24 07:22 BP 176/77 04/28/24 07:22 Pulse Ox 97 04/28/24 12:04 FiO2 Intake & Output 04/27/24 04/28/24 04/28/24 18:59 06:59 18:59 Intake Total 1610 Balance 1610 Weight 65.4 kg Intake: Intake, IV Titration 50 Amount cefTRIAXone 2 gm In 50 Sodium Chloride 0.9% 50 ml @ 100 mls/hr IVPB Q24HR [facility] Rx#:[id number] Oral 1560 Other: Voiding Method Toilet Toilet Toilet Diaper Diaper Diaper # Voids 6 1 # Bowel Movements 1 - Exam GENERAL DESCRIPTION: An elderly female up in the chair in no distress RESPIRATORY SYSTEM: Unlabored breathing , coarse breath sounds bilaterally HEART: S1 S2 regular rate and rhythm , ABDOMEN: Soft , no tenderness EXTREMITIES: No edema feet - Labs CBC & Chem 7: 04/28/24 05:43 04/28/24 05:40 Labs: Abnormal Lab Results - Last 24 Hours (Table) 04/27/24 04/27/24 04/28/24 Range/Units 17:06 19:56 05:40 BUN 34.1 H (9.0-27.0) mg/dL Est GFR (CKD-EPI) 56 L (>=60) BUN/Creatinine Ratio 34.10 H (12.00-20.00) Ratio Glucose 207 H (70-110) mg/dL POC Glucose (mg/dL) 338 H 407 H (70-110) mg/dL 04/28/24 04/28/24 Range/Units 07:25 12:17 BUN (9.0-27.0) mg/dL Est GFR (CKD-EPI) (>=60) BUN/Creatinine Ratio (12.00-20.00) Ratio Glucose (70-110) mg/dL POC Glucose (mg/dL) 220 H 261 H (70-110) mg/dL Microbiology - Last 24 Hours (Table) 04/26/24 18:29 Blood Culture - Preliminary Blood 04/25/24 11:10 Blood Culture - Preliminary Blood Assessment and Plan (1) Gram-positive bacteremia Current Visit: Yes Status: Acute Code(s): R78.81 - BACTEREMIA SNOMED Code(s): 574156531360 (2) Pneumonia Current Visit: Yes Status: Acute Code(s): J18.9 - PNEUMONIA, UNSPECIFIED ORGANISM SNOMED Code(s): 017063011 Plan: 1patient presented to hospital with increasing shortness of breath and cough in this patient who did have evidence of multi focal pneumonia did have a normal procalcitonin, did have a positive blood culture with Staphylococcus hominis which is more likely skin contamination has not a common etiology for pneumonia, blood cultures will be document clearance of bacteremia, vancomycin has been discontinued 2patient possibly have COPD exacerbation with the purulent tracheobronchitis sputum cultures pending did have some clinical improvement with Rocephin that will be continued consider short course of Ceftin on discharge Dictation was produced using [employer] dictation software. please excuse any g rammatical, word or spelling errors. Time with Patient: Less than 30
[2024-04-28 12:47] VITALS: BP 146/69; TEMP 97.6
--- NOTE | 2024-04-28 13:46 | P.DS ---
Providers Date of admission: 04/24/24 02:37 Expected date of discharge: 04/28/24 Attending physician: Irvin Anderson MD Consults: 04/24/24 02:41 Consult Physician Routine Consulting Provider: Kee Sheehan Consult Reason/Comments: COPD exacerbation Do you want consulting provider notified?: Yes, Notify in am 04/25/24 11:00 Consult Physician Routine Consulting Provider: Brant Moreno Consult Reason/Comments: Staph bacteremia Do you want consulting provider notified?: Yes Primary care physician: [facility] Course: Discharge diagnosis: # Acute hypoxic respiratory failure due to COPD exacerbation #Pneumonia #A-fib #Bacteremia #Bilateral buttock pressure ulcer stage I #Hyperbilirubinemia, resolved #Diabetes mellitus, type 2 # Essential hypertension #Hyperlidemia #Hypothyroidism #Anxiety/Depression History of present illness; Patient is a 83-year-old female with CHF, COPD, diabetes mellitus, hypertension, hyperlipidemia, history of CABG, A-fib on Eliquis presents for shortness of breath. Patient states shortness of breath began 2 weeks ago and has gradually worsened. She also has 1 week of cough which has worsened in the last 4 days. It is reported by son in the room that her oxygen saturation was in the low 80s percent at home. She does not use home oxygen. She is compliant with her home medications. Currently she has no other symptoms and reports absence of fever, chills, weight loss, chest pain, diaphoresis, nausea, vomiting, constipation, diarrhea, abdominal pain, weakness, myalgia, dizziness, headache, and dysuria. EKG done in the ER independently interpreted showed A-fib heart rate of 66, no ST segment elevation or depression seen, no T-wave inversions seen. Chest x-ray done independently interpreted in the ER showed suspicious for multilobar pneumonia and cardiomegaly During hospital stay patient was treated for acute hypoxic respiratory failure due to COPD exacerbation and pneumonia. She was given course of antibiotics, breathing treatment, Lasix which improved her symptoms. She was on oxygen while inpatient which was weaned down to 2 L. Also while inpatient she was found to have left coccus hominis and blood culture which was likely a contaminant. Subsequent blood cultures were negative. Patient is discharged in stable condition to [facility]. Patient to be discharged with Ceftin 500 twice daily for 5 days, prednisone taper for 12 days, Aldactone 25 mg daily. She will need to continue 2 to 4 L of oxygen if she remains hypoxic. She is to follow-up with her PCP outpatient. PHYSICAL EXAMINATION: Vitals reviewed GENERAL: No acute distress. Well developed, well nourished. HEENT: Pupils are round and equally reacting to light. EOMI. No scleral icterus. Normocephalic, atraumatic. CARDIOVASCULAR: S1 and S2 present. No murmurs, rubs, or gallops. PULMONARY: Scattered rhonchi bilaterally. no wheezing, no crackles. ABDOMEN: Soft, nontender, nondistended, normoactive bowel sounds. No palpable organomegaly. MUSCULOSKELETAL: No apparent joint swelling and deformities. EXTREMITIES: No apparent cyanosis, clubbing, or pedal edema. NEUROLOGICAL: The patient is alert and oriented x3, Gross neurological examination did not reveal any focal deficits SKIN: No apparent rashes. Dr. Nicki MD I have performed a history and physical examination and medical decision making of this patient, discussed the same with the the resident, and agree with the assessment and plan as written. I performed brief physical exam. Patient Condition at Discharge: Stable Plan - Discharge Summary Discharge Rx Participant: No New Discharge Prescriptions: New cefuroxime axetiL [Ceftin] 500 mg PO BID #10 tab predniSONE See Taper PO DIRECTED #39 tab Spironolactone [Aldactone] 25 mg PO DAILY #30 tablet Continue Albuterol Inhaler [Ventolin Hfa Inhaler] 1 - 2 puff INHALATION RT-Q6H PRN PRN Reason: Shortness Of Breath glipiZIDE XL [Glucotrol XL] 2.5 mg PO DAILY Montelukast [Singulair] 10 mg PO DAILY amLODIPine [Norvasc] 5 mg PO DAILY Sertraline [Zoloft] 25 mg PO DAILY Atorvastatin Calcium [Lipitor] 40 mg PO DAILY lisinopriL [Zestril] 20 mg PO DAILY Isosorbide Mononitrate ER [Imdur] 60 mg PO DAILY metFORMIN HCL 1,000 mg PO BID Furosemide [Lasix] 40 mg PO DAILY Ferrous Sulfate [Iron (65 MG Elemental)] 325 mg PO DAILY carvediloL [Coreg] 6.25 mg PO BID Levothyroxine Sodium [Synthroid] 137 mcg PO DAILY Apixaban [Eliquis] 2.5 mg PO BID Discharge Medication List Albuterol Inhaler [Ventolin Hfa Inhaler] 1 - 2 puff INHALATION RT-Q6H PRN 04/24/24 [History] Apixaban [Eliquis] 2.5 mg PO BID 04/24/24 [History] Atorvastatin Calcium [Lipitor] 40 mg PO DAILY 04/24/24 [History] Ferrous Sulfate [Iron (65 MG Elemental)] 325 mg PO DAILY 04/24/24 [History] Furosemide [Lasix] 40 mg PO DAILY 04/24/24 [History] Isosorbide Mononitrate ER [Imdur] 60 mg PO DAILY 04/24/24 [History] Levothyroxine Sodium [Synthroid] 137 mcg PO DAILY 04/24/24 [History] Montelukast [Singulair] 10 mg PO DAILY 04/24/24 [History] Sertraline [Zoloft] 25 mg PO DAILY 04/24/24 [History] amLODIPine [Norvasc] 5 mg PO DAILY 04/24/24 [History] carvediloL [Coreg] 6.25 mg PO BID 04/24/24 [History] glipiZIDE XL [Glucotrol XL] 2.5 mg PO DAILY 04/24/24 [History] lisinopriL [Zestril] 20 mg PO DAILY 04/24/24 [History] metFORMIN HCL 1,000 mg PO BID 04/24/24 [History] Spironolactone [Aldactone] 25 mg PO DAILY #30 tablet 04/28/24 [Rx] cefuroxime axetiL [Ceftin] 500 mg PO BID #10 tab 04/28/24 [Rx] predniSONE See Taper PO DIRECTED #39 tab 04/28/24 [Rx] Follow up Appointment(s)/Referral(s): Que Ling MD [Primary Care Provider] - 1-2 days Activity/Diet/Wound Care/Special Instructions: follow-up with your PCP for administration of TDAP, Flu and Pneumonia vaccines Discharge/Stand Alone Forms: Who Do I Call?, Adult [facility] List, Assisted Living Facilities, Help In The Home Discharge Disposition: TRANSFER TO SNF/ECF
--- NOTE | 2024-04-28 14:54 | P.PN ---
Subjective Progress Note Date: 04/28/24 This is an 83-year-old female patient with a history of dementia, atrial fibrillation on Eliquis, congestive heart failure, chronic obstructive pulmonary disease, diabetes mellitus, hypertension, hyperlipidemia, hypothyroidism. She was brought into the emergency room early this morning with a 2 to 3-day history of increasing shortness of breath cough and congestion. Breathing treatments at home were not helping. Her O2 saturations was in the low 80s. X-ray shows airspace consolidations consistent with multilobar pneumonia. EKG reveals atrial fibrillation. Echocardiogram reveals preserved left ventricular systolic function with ejection fraction of 65 to 70%. White count 9.4. Hemoglobin 12. 1. Platelets 171. Sodium 133. Potassium 4.0. Bicarb 26. BUN 28. Creatinine 0.98. Glucose 104. proBNP 4510. Procalcitonin negative at 0.10. Viral screen negative. She is seen today in consultation on the regular medical floor. She is currently sitting up in bed. Awake and alert. Poor historian. Family is at the bedside and provides most of the information. The patient is seen today April 25, 2024 in follow-up on the regular medical floor. She is currently sitting up in a chair at the bedside. Awake and alert in no acute distress. She is maintaining good O2 saturations in the 90s on 4 L/min per nasal cannula. She is continued on DuoNeb inhalations, Solu-Medrol. Remains on IV diuretics. Anticoagulated with Eliquis. Antibiotics in the form of vancomycin. Blood cultures positive for gram positive cocci in clusters Staphylococcus species detected. White count 9.7. Hemoglobin 12.7. Platelets 219. Sodium 136. Potassium 3.6. Bicarb 25. BUN 30. Creatinine 1.0. Glucose 213. AST 16. ALT 13. The patient is seen today April 26, 2024 in follow-up on the regular medical floor. She is awake and alert in no acute distress. She is a bit more short of breath today compared to yesterday. Maintaining good O2 saturations in the mid 90s on 4 L/min per nasal cannula. Chest x-ray showing no acute pulmonary process. Blood culture positive for Staphylococcus hominis, suspect contaminant. 0.3. Hemoglobin 11.8. Platelets 217. Sodium 134. Potassium 3.2. Bicarb 30. BUN 42. Creatinine 1.05. Glucose 197. C-reactive protein 5.30. Procalcitonin negative at 0.11. She is currently on vancomycin. Remains on DuoNeb inhalations, Symbicort, initiated on Solu-Medrol. Remains on oral diuretics. Anticoagulated with Eliquis. The patient is seen today April 27, 2024 in follow-up on the regular medical floor. She is currently sitting up in a chair at the bedside. Awake and alert in no acute distress. Breathing easier today compared to yesterday. Still with a loose congested cough. Still with a faint wheeze. She is maintaining O2 saturations in the 90s on 4 L/min per nasal cannula. Follow-up blood culture feeling no growth to date. White count 9.2. Hemoglobin 11.5. Platelets 218. Sodium 137. Potassium 4.1. Bicarb 29. BUN 35. Creatinine 1.0. Glucose 213. Is on DuoNeb and elations, Symbicort, Solu-Medrol and Singulair. Remains on oral diuretics. Antibiotics in the form of ceftriaxone. Anticoagulated with Eliquis. The patient is seen today April 28, 2024 in follow-up on the regular medical floor. She is up ambulating in her room with assistance. Awake and alert in no acute distress. Feeling quite a bit better today. No worsening shortness of breath, cough or congestion. Retaining good O2 saturations in the mid 90s on room air. She is afebrile. Hemodynamically stable. White count 7.8. Hemoglobin 12.2. Platelets 240. Sodium 137. Potassium 4.0. Bicarb 27. BUN 34. Creatinine 1.0. Glucose 207. She is continued on DuoNeb and elations, Symbicort, Solu-Medrol. Antibiotics in the form of ceftriaxone. Remains on oral diuretics. Anticoagulated with Eliquis. Objective - Vital Signs Vital signs: Vital Signs Temp 97.6 F 04/28/24 12:14 Pulse 57 L 04/28/24 12:14 Resp 17 04/28/24 12:14 BP 146/69 04/28/24 12:14 Pulse Ox 95 04/28/24 12:14 FiO2 Intake & Output 04/27/24 04/28/24 04/28/24 18:59 06:59 18:59 Intake Total 1610 120 Balance 1610 120 Weight 65.4 kg Intake: Intake, IV Titration 50 Amount cefTRIAXone 2 gm In 50 Sodium Chloride 0.9% 50 ml @ 100 mls/hr IVPB Q24HR [facility] Rx#:[id number] Oral 1560 120 Other: Voiding Method Toilet Toilet Toilet Diaper Diaper Diaper # Voids 6 1 # Bowel Movements 1 - Exam GENERAL EXAM: Alert, pleasant 83-year-old female, ambulating in her room, on room air, comfortable in no apparent distress. HEAD: Normocephalic. EYES: Normal reaction of pupils, equal size. NOSE: Clear with pink turbinates. THROAT: No erythema or exudates. NECK: No masses, no JVD. CHEST: No chest wall deformity. LUNGS: Equal air entry with no crackles, wheeze or rhonchi. CVS: S1 and S2 normal with no audible murmur, regular rhythm. ABDOMEN: No hepatosplenomegaly, normal bowel sounds, no guarding or rigidity. SPINE: No scoliosis or deformity SKIN: No rashes CENTRAL NERVOUS SYSTEM: Tone is normal in all 4 extremities. EXTREMITIES: There is no peripheral edema. No clubbing, no cyanosis. Peripheral pulses are intact. - Labs CBC & Chem 7: 04/28/24 05:43 04/28/24 05:40 Labs: Abnormal Lab Results - Last 24 Hours (Table) 04/27/24 04/27/24 04/28/24 Range/Units 17:06 19:56 05:40 BUN 34.1 H (9.0-27.0) mg/dL Est GFR (CKD-EPI) 56 L (>=60) BUN/Creatinine Ratio 34.10 H (12.00-20.00) Ratio Glucose 207 H (70-110) mg/dL POC Glucose (mg/dL) 338 H 407 H (70-110) mg/dL 04/28/24 04/28/24 Range/Units 07:25 12:17 BUN (9.0-27.0) mg/dL Est GFR (CKD-EPI) (>=60) BUN/Creatinine Ratio (12.00-20.00) Ratio Glucose (70-110) mg/dL POC Glucose (mg/dL) 220 H 261 H (70-110) mg/dL Microbiology - Last 24 Hours (Table) 04/26/24 18:29 Blood Culture - Preliminary Blood 04/25/24 11:10 Blood Culture - Preliminary Blood Assessment and Plan Assessment: Acute hypoxemic respiratory failure secondary to acute exacerbation of diastolic congestive heart failure. Procalcitonin negative. Viral screen negative. Recovered and on room air Bacteremia secondary to Staphylococcus species, initiated on vancomycin, follow- up cultures revealing no growth Acute exacerbation of chronic obstructive pulmonary disease Atrial fibrillation, anticoagulated with Eliquis Hypertension Hypothyroidism Diabetes mellitus Hyperlipidemia Dementia Plan: The patient was seen and evaluated Labs and medications reviewed Stable and on room air Cleared for discharge Complete a course of antibiotics Complete a prednisone taper Follow-up with her PCP within 1-2 days This patient was seen independently by the pulmonary nurse practitioner addressing pulmonary issues I have personally seen and examined the patient, performed the documentation and the assessment and plan as written. Number of minutes spent on the visit: 25 Dictation was produced using [employer] dictation software. Please excuse any grammatical, word or spelling errors.
[2024-04-28 15:45] VITALS: PULSE 68
== END 2024-04-28 16:57 | DRG 190 ==
LOC: EC 00:38 → 5NMEDONC 02:37
PROVIDERS: ADMIT Internal Medicine; ATTEND Internal Medicine
DX: J44.1 Chronic obstructive pulmonary disease with (acute) exacerbation (principal); I50.33 Acute on chronic diastolic (congestive) heart failure; J18.0 Bronchopneumonia, unspecified organism; J96.01 Acute respiratory failure with hypoxia; J96.21 Acute and chronic respiratory failure with hypoxia; F03.93 Unspecified dementia, unspecified severity, with mood disturbance; R17 Unspecified jaundice; I48.19 Other persistent atrial fibrillation; R78.81 Bacteremia; J44.0 Chronic obstructive pulmonary disease with (acute) lower respiratory infection; I11.0 Hypertensive heart disease with heart failure; E11.9 Type 2 diabetes mellitus without complications; E03.9 Hypothyroidism, unspecified; I27.20 Pulmonary hypertension, unspecified; L89.321 Pressure ulcer of left buttock, stage 1; L89.311 Pressure ulcer of right buttock, stage 1; F32.A Depression, unspecified; Z79.01 Long term (current) use of anticoagulants; E78.5 Hyperlipidemia, unspecified; I25.10 Atherosclerotic heart disease of native coronary artery without angina pectoris; Z95.1 Presence of aortocoronary bypass graft; Z88.1 Allergy status to other antibiotic agents; Z79.84 Long term (current) use of oral hypoglycemic drugs; Z79.890 Hormone replacement therapy; Z79.899 Other long term (current) drug therapy; Z82.49 Family history of ischemic heart disease and other diseases of the circulatory system; Z87.891 Personal history of nicotine dependence; Z90.710 Acquired absence of both cervix and uterus; Z86.79 Personal history of other diseases of the circulatory system; Z87.01 Personal history of pneumonia (recurrent)
CPT/HCPCS: 36415; 71045; 71046; 80048; 80053; 82803; 83036; 83605; 83735; 83880; 84145; 84484; 85025; 85027; 85610; 85730; 86140; 87040; 87077; 87186; 87449; 87636; 93005; 93306; 94640; 94760; 96365; 96366; 96367; 96375; 99285